=== PATIENT | female | born 1945 | race Caucasian/White ===

== ENCOUNTER 2017-03-13 10:39 | Observation (INO) | payer BC ==
[~2017-03-13] VITALS: Ht 170.2 cm; Wt 105.0 kg
--- OUTSIDE RECORDS SUMMARY | ~2017-03-13 | XMS | Clinical Summary ---
Demographics + + + | Address | [address] | | | [place] [address] | + + + | Home Phone | | + + + | Preferred Language | Unknown | + + + | Marital Status | | + + + | Presybeterian Affiliation | Unknown | + + + | Race | White | + + + | Ethnic Group | Not or | + + + Author + + + | Author | [facility] | + + + | Organization | [facility] | + + + | Address | Unknown | + + + | Phone | Unavailable | + + + Support +------+ +---------+ + | Name | Relationship | Address | Phone | +------+ +---------+ + ECON | Unknown | | +------+ +---------+ + Care Team Providers + +------+ + | Care Product Demonstrator Name | Role | Phone | + +------+ + | Myah Anguiano | PP | | + +------+ + Source Comments [facility] is fully live on both [facility] and [facility] Allergies + + + + + + | Active Allergy | Reactions | Severity | Noted | Comments | | | | | Date | | + + + + + + | Metronidazole | Unknown | | 05/06/19 | Pt reports getting | | Benzoate | | | 15 | a nose bleed after | | | | | | taking | + + + + + + Current Medications + + +-------+---------+------+------+-------+ | Prescription | Sig. | Disp. | Refills | Star | End | Statu | | | | | | t | Date | s | | | | | | Date | | | + + +-------+---------+------+------+-------+ | torsemide 10 mg | Take by mouth. | | | | | Activ | | oral tablet | | | | | | e | + + +-------+---------+------+------+-------+ | atenolol 50 mg | Take by mouth. | | | | | Activ | | oral tablet | | | | | | e | + + +-------+---------+------+------+-------+ | FLUoxetine 40 mg | Take by mouth. | | | | | Activ | | oral capsule | | | | | | e | + + +-------+---------+------+------+-------+ | | Take by mouth. | | | | | Activ | | hydrochlorothiazide | | | | | | e | | 12.5 mg oral tablet | | | | | | | + + +-------+---------+------+------+-------+ | levothyroxine 75 | Take by mouth. | | | | | Activ | | mcg oral tablet | | | | | | e | + + +-------+---------+------+------+-------+ | simvastatin 40 mg | Take by mouth. | | | | | Activ | | oral tablet | | | | | | e | + + +-------+---------+------+------+-------+ | allopurinol 300 mg | Take 150 mg by mouth | | | | | Activ | | oral tablet | once daily. | | | | | e | + + +-------+---------+------+------+-------+ | | Take 2 tablets by | | | | | Activ | | diphenhydrAMINE-acet | mouth once daily at | | | | | e | | aminophen (TYLENOL | bedtime. | | | | | | | PM EXTRA STRENGTH) | | | | | | | | 25-500 mg oral | | | | | | | | tablet | | | | | | | + + +-------+---------+------+------+-------+ | docusate sodium | Take 100 mg by mouth | | | | | Activ | | 100 mg oral capsule | two times daily. | | | | | e | + + +-------+---------+------+------+-------+ | cyclobenzaprine 10 | Take 10 mg by mouth | | | | | Activ | | mg oral tablet | three times daily as | | | | | e | | | needed. Do not use | | | | | | | | longer than 2-3 | | | | | | | | weeks. | | | | | | + + +-------+---------+------+------+-------+ | cholecalciferol, | Take 5,000 Units by | | | | | Activ | | Vitamin D3, 1,000 | mouth once daily. | | | | | e | | unit oral tablet | | | | | | | + + +-------+---------+------+------+-------+ Active Problems Not on file Social History + +-------+ +--------+------+ | Tobacco Use | Types | Packs/Day | Years | Date | | | | | Used | | + +-------+ +--------+------+ | Former Smoker | | | | | + +-------+ +--------+------+ + +---+---+---+ | Smokeless Tobacco: | | | | | Never Used | | | | + +---+---+---+ + + + | Sex Assigned at | Date Recorded | | | | + + + | Not on file | | + + + Last Filed Vital Signs + + + + | Vital Sign | Reading | Time Taken | + + + + | Blood Pressure | 129/87 | 05/05/2014 10:42 AM PDT | + + + + | Pulse | 72 | 05/05/2014 10:42 AM PDT | + + + + | Temperature | - | - | + + + + | Respiratory Rate | 14 | 05/05/2014 10:42 AM PDT | + + + + | Oxygen Saturation | - | - | + + + + | Inhaled Oxygen | - | - | | Concentration | | | + + + + | Weight | 132.1 kg (291 lb 3.6 | 05/05/2014 10:42 AM PDT | | | oz) | | + + + + | Height | 167.5 cm (5' 5.95") | 05/05/2014 10:42 AM PDT | + + + + | Body Mass Index | 47.08 | 05/05/2014 10:42 AM PDT | + + + + Plan of Treatment + + + + + | Health Maintenance | Due Date | Last Done | Comments | + + + + + | INFLUENZA VACCINE | | | | | (FLU SHOT) | 7 | | | + + + + + Results Not on filefrom Last 3 Months
[~2017-03-13 10:39] MED LIST: ALLOPURINOL300 MG PO; ATENOLOL50 MG PO; CIPRO500 MG PO; CYCLOBENZAPRINE10 MG PO; FLAGYL500 MG PO; FLUOXETINE HCL40 MG PO; LEVOTHYROXINE75 MCG PO; MICROZIDE12.5 MG PO; NORCO 5-325 TA1 EACH PO; OXYCODONE-ACET1 EAC1 PO; PERCOCET 5-3251 EACH PO; PROMETHAZINE HC25 M1 PO; SIMVASTATIN40 MG PO; STOOL SOFTENER1 EAC1 PO; STOOL SOFTENER1 EAC2 PO; TORSEMIDE10 MG PO; TYLENOL PM EX-1 EACH PO; VITAMIN D10000 UNIT PO; ZOFRAN4 MG PO
--- NOTE | 2017-03-13 11:30 | NUR ---
pt arrived via wheelchair with spouse. pt alert and oriented. pt able to stand and pivot to bed with one person assist.
[2017-03-13] MEDS ORDERED: TYLENOL325 MG PO (12:00)
[2017-03-13] MEDS ORDERED: PERCOCET 5-3251 EACH PO (12:01)
[2017-03-13] MEDS ORDERED: LEVOTHYROXINE100 MCG PO (12:43)
--- NOTE | 2017-03-13 12:45 | NUR ---
MED REC COMPLETE WITH SAFEWAY REFILL HISTORY.
--- NOTE | 2017-03-13 16:30 | NUR ---
PT UP TO BEDSIDE COMMODE, ONE PERSON ASSIST PIVOT TRANSFER WITH FWW, NON WT BEARING ON RIGHT FOOT. SHE REPORTS PAIN IS 6/10 BUT HAS IMPROVED. WILL ADMINISTER OXYCODONE AT 1700 WHEN AVAILABLE AGAIN. PT SITTING AT BEDSIDE TO EAT DINNER.
--- NOTE | 2017-03-13 16:52 | NUR ---
THIS RN TO ROOM FOR EVENING MEDICATIONS. GIVEN ORDERED (SEE MAR). PT SITTING ON EDGE OF BED EATING DINNER. PT STATES "MY FOOT JUST SEEMS TO BE HURTING WORSE TODAY." PT ADVISED TO KEEP LEG ELEVATED AND KEEP ICE ON ANKLE. PT REFUSES AT THIS TIME BUT STATES SHE WILL "LIFT IT UP AND PUT THE ICE BACK ON AFTER DINNER." CALL LIGHT WITHIN REACH. NO ADDITIONAL REQUESTS OR COMPLAINS AT THIS TIME.
--- NOTE | 2017-03-13 16:59 | NUR ---
PT AGREES AT THIS TIME TO ELEVATE LEGS AND REPLACE ICE. PT ASSISTED INTO A COMFORTABLE POSITION. LEGS ELEVATED. ICE IN PLACE PT FINSHING DINNER. NO FUTHER REQUESTS OR COMPLAINTS AT THIS TIME.
--- NOTE | 2017-03-13 17:39 | NUR ---
PT ADMITED TODAY FOR DARSHAN AND RIGHT ANKLE FX. SURGERY PLANNED FOR 03/14 BUT DELAYED UNTIL DARSHAN IS RESOLVED. BASELINE BUN 1.4-1.5, NOW 2.0. PT TOLERATING PO CARIDAC DIET WITH GOOD INTAKE. PT PAINFUL TODAY, PAIN MEDICAITON GIVEN (LAST AT 1654). LEG ELVATED, ICE IN PLACE. PT ON ONE PERSON ASSIST FOR MOVING. WEAR BOOT WHEN OUT OF BED. PT MAY PIVOT AND USE WALKER FOR TRANSFERS. PT VOIDING WELL, URINE QUANTITY SUFFICIENT. PT ALERT AND ORIENTED, CALLS APPROPRIATLY, AND IS COOPERATIVE WITH CARE PLAN.
--- NOTE | 2017-03-13 18:17 | NUR ---
PAIN REASSESSED, NOW 04/14. PT STATES "IT IS MUCH, MUCH BETTER." PT RESTING IN BED. LEGS REMAIN ELEVATED, ICE IN PLACE. PT WATCHING TV. NO REQUESTS OR COMPLAINTS AT THIS TIME. BED RAILS UP. CALL LIGHT WITHIN REACH.
--- NOTE | 2017-03-13 19:23 | NUR ---
RECEIVED REPORT FROM SIMEON FREEMAN AND JAS. PATIENT IS RESTING COMFORTABLY IN BED, BREATHING IS EVEN AND UNLABORED. REPORTS 3/10 PAIN IN RIGHT ANKLE AND STATES "I AM COMFORTABLE RIGHT NOW." DENIES NEEDS. FEET ARE ELEVATED, ICE APPLIED TO AFFECTED EXTREMITY. CALL LIGHT WITHIN REACH.
--- NOTE | 2017-03-13 19:49 | NUR ---
PATIENT RESTING COMFORTABLY IN BED, BREATHING IS EVEN AND UNLABORED. O2 SATURATION IS 95% ON ROOM AIR. DENIES PAIN AT THIS TIME. SHE STATES "MY PAIN COMES AND GOES, IT FEELS LIKE A SHARP, SHOOTING SENSATION, BUT IT GOES AWAY." DENIES NEEDS AT THIS TIME. ASSESSMENT DONE, CALL LIGHT WITHIN REACH.
--- NOTE | 2017-03-13 20:44 | NUR ---
WOKE PT FOR VITALS. PULSE OX READIN 95 O2 ON RA. IV CONTINUES PER ORDER.
--- NOTE | 2017-03-13 23:01 | NUR ---
PATIENT ASSISTED TO BEDSIDE COMODE WITH 1PA/PIVOT TRANSFER WITH FWW. TOLERATED WELL. NOW RESTING COMFORTABLY IN BED, BREATHING IS EVEN AND UNLABORED. O2 SATURATION IS 95% ON ROOM AIR. REPORTS 4/10 PAIN IN RIGHT FOOT AND STATES "IT IS NOT BAD, BUT IT IS THERE." PRN OXYCODONE GIVEN PER EMAR. AFFECTED LEG ELEVATED AND NEW ICE PACKS APPLIED. PATIENT DENIES FURTHER NEEDS AT THIS TIME. CALL LIGHT WITHIN REACH.
--- NOTE | 2017-03-14 00:56 | NUR ---
PATIENT RESTING COMFORTABLY IN BED, BREATHING IS EVEN AND UNLABORED. O2 SATURATION IS 93% ON ROOM AIR, PULSE IS 65. RIGHT LEG ELEVATED WITH ICE. FLACC SCORE OF 0. CALL LIGHT WITHIN REACH, IV FLUIDS INFUSING.
--- NOTE | 2017-03-14 02:30 | NUR ---
ASSISTED PATIENT TO BEDSIDE COMODE WITH 1PA/FWW PIVOT. TOLERATED WELL WITHOUT A SIGNIFICANT INCREASE IN PAIN. NOW RESTING COMFORTABLY IN BED, BREATHING IS EVEN AND UNLABORED. O2 SATURATION IS 95% ON ROOM AIR. REPORTS 5/10 PAIN IN RIGHT ANKLE, PRN OXYCODONE GIVEN. DENIES FURTHER NEEDS. ASSESSMENT AND VITALS DONE. CALL LIGHT WITHIN REACH.
--- NOTE | 2017-03-14 04:34 | NUR ---
PATIENT'S NIGHT WAS UNEVENTFUL. SHE HAS BEEN RESTING COMFORTABLY IN BED THROUGHOUT SHIFT. VSS, URINE OUTPUT QS. PAIN WELL CONTROLLED WITH ICE AND PRN OXYCODONE. CMS INTACT TO AFFECTED EXTREMITY, HAS EDEMA IN RIGHT FOOT. PATIENT IS 1PA TO COMODE WITH PIVOT TRANSFER AND FWW. PATIENT IS TO WEAR BOOT WHEN AMBULATING. NO ACUTE CHANGES FROM BEGINNING OF SHIFT.
--- NOTE | 2017-03-14 04:40 | NUR ---
PATIENT RESTING COMFORTABLY IN BED, BREATHING IS EVEN AND UNLABORED. FLACC SCORE OF 0. CALL LIGHT WITHIN REACH.
--- NOTE | 2017-03-14 05:53 | NUR ---
ASSISTED PATIENT TO BEDSIDE COMODE WITH 1PA/FWW PIVOT TRANSFER. TOLERATED WELL. NOW RESTING COMFORTABLY IN BED, BREATHING IS EVEN AND UNLABORED. REPORTS 3/10 PAIN IN BLE, PRN TYLENOL GIVEN PER EMAR. DENIES FURTHER NEEDS. ASSESSMENT AND VITALS DONE. CALL LIGHT WITHIN REACH.
--- NOTE | 2017-03-14 07:00 | NUR ---
BEDSIDE HANDOFF REPORT RECEIVED FROM MILLWRIGHT INSTRUCTOR RN. PT RESTING IN BED, LEGS ELEVATED. PT DENIES NEEDS AT THIS TIME. IV FLUIDS INFUSING AT 150 ML/HR.
--- NOTE | 2017-03-14 08:22 | NUR ---
PT RESTING IN BED. PT RATING PAIN 3/10 TO RIGHT ANKLE, DENIES NEED FOR PAIN MEDICATION AT THIS TIME. PT ON ROOM AIR, LUNG SOUNDS CLEAR. PT ASSISTED TO BEDSIDE COMMODE, VOIDING WITHOUT DIFFICULTY, URINE YELLOW IN COLOR. PT ASSIST X1 STAND PIVOT WITH FWW. IV FLUIDS INFUSING NS AT 150 ML/HR. PT TOLERATING REGULAR DIET, POOR APPETITE THIS MORNING. CMS INTACT, MINIMAL SWELLIGN TO RIGHT LOWER LEG, LEGS ELEVATED ON BED. ICE PACKS TO RIGHT ANKLE. PT DENIES OTHER NEEDS AT THIS TIME.
--- NOTE | 2017-03-14 08:48 | NUR ---
Renal function improved, increased enoxaparin dose from 30mg sub-q daily to 40mg sub-q daily
--- NOTE | 2017-03-14 09:27 | NUR ---
PATIENT HA IN BED WAS GIVEN WASHCLOTH FOR FACE AND HANDS. SET PATIENT UP FOR SHOWER, IS GOING TO REST A BIT BEFORE TAKING SHOWER.
--- NOTE | 2017-03-14 11:36 | NUR ---
NOTIFIED BY NURSE AIDE THAT PT HAS RASH UNDER BREASTS. ASSESSED, REDNESS UNDER BOTH BREASTS, PT STATES RASH [place]. IN ADDITION PT HAS RASH TO PANIS. NYSTATIN POWDER ORDERED. NURSE AIDES ASSISTING PT TO COMPLETE SHOWER.
--- NOTE | 2017-03-14 11:48 | NUR ---
HELPED PATIENT SHOWER AND DRESS. USED FWW AND PIVOT BACK TO BED FOR LUNCH. PLACED PILLOWCASES UNDER BREASTS AND ABOVE PELVIC AREA TO RELIEVE IRRITATION. FRESH WATER GIVEN. GRANDDAUGHTER STOPPED BY TO SAY HELLO BEFORE SHOWER.
== END 2017-03-14 13:42 | disposition home or self-care (01) ==
LOC: MS 10:39
PROVIDERS: ADMIT Internal Medicine
DX: N17.9 Acute kidney failure, unspecified (principal); I12.9 Hypertensive chronic kidney disease with stage 1 through stage 4 chronic kidney disease, or unspecified chronic kidney disease; N18.3 Chronic kidney disease, stage 3 (moderate); E78.5 Hyperlipidemia, unspecified; E03.9 Hypothyroidism, unspecified; D63.1 Anemia in chronic kidney disease; F39 Unspecified mood [affective] disorder; E79.0 Hyperuricemia without signs of inflammatory arthritis and tophaceous disease; S82.891A Other fracture of right lower leg, initial encounter for closed fracture; W19.XXXA Unspecified fall, initial encounter; Z79.899 Other long term (current) drug therapy; Z88.1 Allergy status to other antibiotic agents; Z79.891 Long term (current) use of opiate analgesic; Z23 Encounter for immunization
CPT/HCPCS: 36415; 80069; 82570; 84300; 84540; 90662; 96360; 96361; 96372; G0008; G0378; J1650; J7030

== ENCOUNTER 2018-04-17 14:53 | Emergency (ER) | payer BC ==
[~2018-04-17] VITALS: Ht 170.2 cm; Wt 105.0 kg
--- OUTSIDE RECORDS SUMMARY | ~2018-04-17 | XMS | Encounter Summary ---
Demographics + + + | Address | [address] | | | [place] [address] | + + + | Home Phone | | + + + | Preferred Language | Unknown | + + + | Marital Status | | + + + | Presybeterian Affiliation | Unknown | + + + | Race | Unknown | + + + | Ethnic Group | Unknown | + + + Author + + + | Author | [facility] | + + + | Organization | [facility] | + + + | Address | Unknown | + + + | Phone | Unavailable | + + + Support + + + + + | Name | Relationship | Address | Phone | + + + + + | Harsh Ruiz | ECON | [address] | | | | | [place] | | | | | [address] | | + + + + + Care Team Providers + +------+ + | Care Photographer Still Name | Role | Phone | + +------+ + | Melissa Shayan | PCP | | + +------+ + Encounter Details +--------+ + + + + | Date | Type | Department | Care Team | Description | +--------+ + + + + | 02/04/ | Telephone | [facility] | [place], | | | 2017 | | [place] [address] | [address] | | | | | [address] | | | | | | [place] [address] | | | | | | [phone] | | | +--------+ + + + [...] [place] | | | | | | [address] | | | | | | | | +--------+---------+ + + + as of this encounter Visit Diagnoses Not on filein this encounter"
--- OUTSIDE RECORDS SUMMARY | ~2018-04-17 | XMS | Encounter Summary ---
Demographics + + + | Address | [address] | | | [place] [address] | + + + | Home Phone | | + + + | Preferred Language | Unknown | + + + | Marital Status | | + + + | Yarsanism Affiliation | Unknown | + + + | Race | Unknown | + + + | Ethnic Group | Unknown | + + + Author + + + | Author | [facility] | + + + | Organization | [facility] | + + + | Address | Unknown | + + + | Phone | Unavailable | + + + Support + + + + + | Name | Relationship | Address | Phone | + + + + + | Harsh Ruiz | ECON | [address] | | | | | [place] | | | | | [address] | | + + + + + Care Team Providers + +------+ + | Care Attending Ambulatory Care Name | Role | Phone | + [...] | | [address] | [address] [place], [place] | (Primary Dx); CKD | | | | [place] [address] | [address] | (chronic kidney | | | | [phone] | | disease) stage 4, | | [...] uric acid, intact PTH, rU/A, Urine total thuaafs-hk-plgjdbnnjd r atio done before she comes back [...] kidney disease) stage 4, GFR 15-29 ml/min ([facility]) Class 2 obesity due to excess calories [...] She'd visited with the Urology team in [place] & was advised a bladder suspension surgery. [...] 100 mg by mouth daily. ergocalciferol (DRISDOL) 46974 UNITS capsule Take 1 capsule by mouth [...] LABIRON 48.5 12/17/2017 LABPROT 1,431.5 (A) 10/30/2017 [id number] 46 07/05/2017 OLD LABORATORY DATA: Laboratory tests [...] chart her blood pressure in the appropriate [facility] er at home. She is to call [...] uric acid, intact PTH, rU/A, Urine total ilvldcd-iw-lddczuxpky r atio done before she comes back [...] | | | | | | [address] [place], [place] | | | | | | [address] | | | | | | | | +--------+---------+ + + + as of this encounter Visit Diagnoses + + | Diagnosis | + + | Essential hypertension, benign - Primary | + + | CKD (chronic kidney disease) stage 4, GFR 15-29 ml/min ([facility]) | + + | Chronic kidney disease, Stage IV (severe) | + + | Stress incontinence of urine | + + | Persistent proteinuria | + + | Proteinuria | + + | Vitamin D deficiency | + + | Unspecified vitamin D deficiency | + +
--- OUTSIDE RECORDS SUMMARY | ~2018-04-17 | XMS | Clinical Summary ---
Demographics + + + | Address | [address] | | | [place] [address] | + + + | Home Phone | | + + + | Preferred Language | Unknown | + + + | Marital Status | | + + + | Buddhism Affiliation | Unknown | + + + | Race | Unknown | + + + | Ethnic Group | Unknown | + + + Author + + + | Author | [facility] | | | and [place] | + + + | Organization | [facility] | | | and [...] [place] | | | | | [address] | | + + + + + | Harsh Kimball | ECON | [address] | | | | | [place], [place] | | | | | [address] | | + + + + + Care Team Providers + +------+ + | Care Manager Spanish Name | Role | Phone | + [...] + | Facet arthritis of lumbar region (HCC) | 07/01/2013 | + + + | [...] Height | 172.7 cm (5' 8") | 03/12/20144 PST | + + + + | [...] +-------+--------+ +------+-------+---------+ | BCBS | BCBS | [id number] | PPO | | | | | [...] | Self | [birth year] | Home: | [address] | | | al/Fam | | 1946 | [phone] [place] | | | [place] | | | [phone] | [address] | + +--------+ +--------+ + +
--- OUTSIDE RECORDS SUMMARY | ~2018-04-17 | XMS | Encounter Summary ---
Demographics + + + | Address | [address] | | | [place] [address] | + + + | Home Phone | | + + + | Preferred Language | Unknown | + + + | Marital Status | | + + + | Lutheran Affiliation | Unknown | + + + | Race | Unknown | + + + | Ethnic Group | Unknown | + + + Author + + + | Author | [facility] | + + + | Organization | [facility] | + + + | Address | Unknown | + + + | Phone | Unavailable | + + + Support + + + + + | Name | Relationship | Address | Phone | + + + + + | Harsh Ruiz | ECON | [address] | | | | | [place] | | | | | [address] | | + + + + + Care Team Providers + +------+ + | Care Brothel Keeper Name | Role | Phone | + [...] | | | | | [place], [place] [address] | | | | | | [phone] | | | +--------+ + + + [...] [place] | | | | | | [address] | | | | | | | | +--------+---------+ + + + as of this encounter Visit Diagnoses Not on filein this encounter"
--- OUTSIDE RECORDS SUMMARY | ~2018-04-17 | XMS | Encounter Summary ---
Demographics + + + | Address | [address] | | | [place] [address] | + + + | Home Phone | | + + + | Preferred Language | Unknown | + + + | Marital Status | | + + + | Zoroastrian Affiliation | Unknown | + + + | Race | Unknown | + + + | Ethnic Group | Unknown | + + + Author + + + | Author | [facility] | + + + | Organization | [facility] | + + + | Address | Unknown | + + + | Phone | Unavailable | + + + Support + + + + + | Name | Relationship | Address | Phone | + + + + + | Harsh Ruiz | ECON | [address] | | | | | [place] | | | | | [address] | | + + + + + Care Team Providers + +------+ + | Care Customer Data Technician Name | Role | Phone | + +------+ + | Shayan Torres DO | PCP | | + +------+ + Encounter Details +--------+ + + + + | Date | Type | Department | Care Team | Description | +--------+ + + + + | 02/06/ | Orders Only | [facility] | Hussain, | Vitamin D | | 2018 | | [place] [address] | [place] | deficiency; | | | | [address] | | Hyperuricemia; | | | | [place], [place] [address] | | Hematuria, | | | | [phone] | | microscopic; | | | | [...] | | | | | | ml/min ([facility]); | | | | | | Nephrolithiasis | +--------+ + + + + Social [...] | 05/13/ | Office | Nephrology | Neli Frye MD | | | 2019 | Visit | | [address] | | | | | | [address] [place] | | | | | | [address] | | | | | | | | +--------+---------+ + + + as of this encounter Procedures + +--------+ + + + | Procedure Name | Priori | Date/Time | Associated Diagnosis | Comments | | | ty | | | | + +--------+ + + + | PROTEIN / CREATININE | Routin | 02/06/2017 | Vitamin D | Results for this | | RATIO, URINE | e | 8:40 AM | deficiency | procedure are in the | | | | PST | Hyperuricemia | results section. | | | | | Hematuria, | | | | | | microscopic | | | | | | Persistent | | | | | | proteinuria | | | | | | Essential | | | | | | hypertension, benign | | | | | | CKD (chronic | | | | | | kidney disease) | | | | | | stage 4, GFR 15-29 | | | | | | ml/min ([facility]) | | | | | | Nephrolithiasis | | + +--------+ + + + | VITAMIN D 25 HYDROXY | Routin | 02/06/2017 | Vitamin D | Results for this | | | e | 8:40 AM | deficiency | procedure are in the | | | | PST | Hyperuricemia | results section. | | | | | Hematuria, | | | | | | microscopic | | | | | | Persistent | | | | | | proteinuria | | | | | | Essential | | | | | | hypertension, benign | | | | | | CKD (chronic | | | | | | kidney disease) | | | | | | stage 4, GFR 15-29 | | | | | | ml/min (HCC) | | | | | | Nephrolithiasis | | + +--------+ + + + | URINALYSIS (REFLEX | Routin | 02/06/2017 | Vitamin D | Results for this | | TO MICRO) | e | 8:40 AM | deficiency | procedure are in the | | | | PST | Hyperuricemia | results section. | | | | | Hematuria, | | | | | | microscopic | | | | | | Persistent | | | | | | proteinuria | | | | | | Essential | | | | | | hypertension, benign | | | | | | CKD (chronic | | | | | | kidney disease) | | | | | | stage 4, GFR 15-29 | | | | | | ml/min (HCC) | | | | | | Nephrolithiasis | | + +--------+ + + + | CBC W/AUTO DIFF | Routin | 02/06/2017 | Vitamin D | Results for this | | (REFLEX TO MANUAL) | e | 8:40 AM | deficiency | procedure are in the | | | | PST | Hyperuricemia | results section. | | | | | Hematuria, | | | | | | microscopic | | | | | | Persistent | | | | | | proteinuria | | | | | | Essential | | | | | | hypertension, benign | | | | | | CKD (chronic | | | | | | kidney disease) | | | | | | stage 4, GFR 15-29 | | | | | | ml/min (HCC) | | | | | | Nephrolithiasis | | + +--------+ + + + | PTH INTACT NO | Routin | 02/06/2017 | Vitamin D | Results for this | | CALCIUM | e | 8:40 AM | deficiency | procedure are in the | | | | PST | Hyperuricemia | results section. | | | | | Hematuria, | | | | | | microscopic | | | | | | Persistent | | | | | | proteinuria | | | | | | Essential | | | | | | hypertension, benign | | | | | | CKD (chronic | | | | | | kidney disease) | | | | | | stage 4, GFR 15-29 | | | | | | ml/min (HCC) | | | | | | Nephrolithiasis | | + +--------+ + + + | RENAL FUNCTION PANEL | Routin | 02/06/2017 | Vitamin D | Results for this | | | e | 8:40 AM | deficiency | procedure are in the | | | | PST | Hyperuricemia | results section. | | | | | Hematuria, | | | | | | microscopic | | | | | | Persistent | | | | | | proteinuria | | | | | | Essential | | | | | | hypertension, benign | | | | | | CKD (chronic | | | | | | kidney disease) | | | | | | stage 4, GFR 15-29 | | | | | | ml/min ([facility]) | | | | | | Nephrolithiasis | | + +--------+ + + + in this encounter Results Protein / creatinine ratio, urine (02/06/2017 8:40 AM) + + + + + | Component | Value | Ref Range | Performed At | + + + + + | UR | 2,385.7 (A) | 0.0 - 50.0 | [facility] | | PROTEIN/CREATININE | | | LABORATORY | + + + + + + + | Specimen | + + | Urine | + + + + + + + | Performing | Address | City/State/Zipcode | Phone Number | | Organization | | | | + + + + + | [facility] | [address] | [place] [address] | [phone] | | LABORATORY | Blvd. | | | + + + + + Renal function panel (02/06/2017 8:40 AM) + + + + + | Component | Value | Ref Range | Performed At | + + + + + | GLUCOSE | 90 | 70 - 100 mg/dL | [facility] | | | | | LABORATORY | + + + + + | BUN | 51 (A) | 6 - 23 mg/dL | [facility] | | | | | LABORATORY | + + + + + | CREATININE | 2.38 (A) | 0.70 - 1.18 mg/dL | [facility] | | | | | LABORATORY | + + + + + | PHOSPHORUS | 4.4 | 2.5 - 5.0 mg/dL | [facility] | | | | | LABORATORY | + + + + + | Albumin | 3.6 | 3.5 - 5.0 | [facility] | | | | | LABORATORY | + + + + + | SODIUM | 142 | 132 - 143 mmol/L | [facility] | | | | | LABORATORY | + + + + + | POTASSIUM | 4.4 | 3.6 - 5.1 mmol/L | [facility] | | | | | LABORATORY | + + + + + | CHLORIDE | 105 | 95 - 112 mmol/L | [facility] | | | | | LABORATORY | + + + + + | CO2 | 26 | 19 - 31 mmol/L | [facility] | | | | | LABORATORY | + + + + + | ANION GAP AGAP | 15.4 | 7 - 21 mmol/L | [facility] | | | | | LABORATORY | + + + + + | GFR MDRD Non Af Amer | | | [facility] | | | | | LABORATORY | + + + + + | Phosphorus,Inorganic | 4.4 | 2.5 - 5.0 | [facility] | | | | | LABORATORY | + + + + + | BUN/CREAT | 21.4 | 6.0 - 28.6 | [facility] | | | | | LABORATORY | + + + + + | CALCIUM | 9.1 | 8.5 - 10.3 mg/dL | [facility] | | | | | LABORATORY | + + + + + | EGFR | 20 (A) | 60 - 140 mg/dL | [facility] | | | | | LABORATORY | + + + + + + + | Specimen | + + | Blood | + + + + + + + | Performing | Address | City/State/Zipcode | Phone Number | | Organization | | | | + + + + + | [facility] | [address] | [place] [address] | [phone] | | LABORATORY | Blvd[address] | | | + + + + + Vitamin D,25 hydroxy (02/06/2017 8:40 AM) + +-------+ + + | Component | Value | Ref Range | Performed At | + +-------+ + + | VITAMIN D,25 HYDROXY | 47 | 30 - 100 | [facility] | | | | | LABORATORY | + +-------+ + + + + | Specimen | + + | Blood | + + + + + + + | Performing | Address | City/State/Zipcode | Phone Number | | Organization | | | | + + + + + | [facility] | [address] | [place] [address] | [phone] | | LABORATORY | Blvd[address] | | | + + + + + CBC W/Auto Diff (Reflex to Manual) (02/06/2017 8:40 AM) + + + + + | Component | Value | Ref Range | Performed At | + + + + + | WBC | 6.2 | 4.5 - 11.0 10^3/mL | [facility] | | | | | LABORATORY | + + + + + | RBC | 3.00 (A) | 3.8 - 5.1 10^6/ L | [facility] | | | | | LABORATORY | + + + + + | HGB | 10.4 (A) | 12.0 - 16.0 g/dL | [facility] | | | | | LABORATORY | + + + + + | HCT | 31.0 (A) | 35 - 45 % | [facility] | | | | | LABORATORY | + + + + + | MCV | 103.3 (A) | 81 - 99 fL | [facility] | | | | | LABORATORY | + + + + + | MCH | 35 (A) | 27 - 33 pg | [facility] | | | | | LABORATORY | + + + + + | MCHC | 34 | 30 - 36 g/dL | [facility] | | | | | LABORATORY | + + + + + | PLT | 185 | 140 - 440 K/ L | [facility] | | | | | LABORATORY | + + + + + | RDW SD | | % | [facility] | | | | | LABORATORY | + + + + + | MPV | | fL | [facility] | | | | | LABORATORY | + + + + + | DIFF TYPE | | | [facility] | | | | | LABORATORY | + + + + + | NEUTROPHILS | | % | [facility] | | | | | LABORATORY | + + + + + | LYMPHOCYTES | | % | [facility] | | | | | LABORATORY | + + + + + | MONOCYTES | | % | [facility] | | | | | LABORATORY | + + + + + | EOSINOPHILS | | % | [facility] | | | | | LABORATORY | + + + + + | BASOPHILS | | % | [facility] | | | | | LABORATORY | + + + + + | NEUTROPHILS ABS | | / L | [facility] | | | | | LABORATORY | + + + + + | LYMPHOCYTES ABS | | / L | [facility] | | | | | LABORATORY | + + + + + | MONOCYTES ABS | | / L | [facility] | | | | | LABORATORY | + + + + + | EOSINOPHILS ABS | | / L | [facility] | | | | | LABORATORY | + + + + + | BASOPHILS ABS | | / L | [facility] | | | | | LABORATORY | + + + + + + + | Specimen | + + | Blood | + + + + + + + | Performing | Address | City/State/Zipcode | Phone Number | | Organization | | | | + + + + + | [facility] | [address] | [place] [address] | [phone] | | LABORATORY | Blvd[address] | | | + + + + + Urinalysis (reflex to micro) (02/06/2017 8:40 AM) + + + + + | Component | Value | Ref Range | Performed At | + + + + + | COLOR UA | Yellow | | [facility] | | | | | LABORATORY | + + + + + | CLARITY | Clear | | [facility] | | | | | LABORATORY | + + + + + | SPECIFIC | 1.010 | 1.005 - 1.030 | [facility] | | GRAVITY,URINE | | | LABORATORY | + + + + + | LEUKOCYTE ESTERASE | Trace | | [facility] | | | | | LABORATORY | + + + + + | NITRITE | Negative | | [facility] | | | | | LABORATORY | + + + + + | UROBILINOGEN | Normal | | [facility] | | | | | LABORATORY | + + + + + | PROTEIN | 100 | | [facility] | | | | | LABORATORY | + + + + + | PH,URINE | 5 | 5 - 9 | [facility] | | | | | LABORATORY | + + + + + | BLOOD | PositiveComment: small | | [facility] | | | | | LABORATORY | + + + + + | KETONES | Negative | | [facility] | | | | | LABORATORY | + + + + + | BILIRUBIN | Negative | | [facility] | | | | | LABORATORY | + + + + + | GLUCOSE | Negative | | [facility] | | | | | LABORATORY | + + + + + + + | Specimen | + + | Urine | + + + + + + + | Performing | Address | City/State/Zipcode | Phone Number | | Organization | | | | + + + + + | [facility] | [address] | [place] [address] | [phone] | | LABORATORY | Blvd[address] | | | + + + + + PTH intact no calcium (02/06/2017 8:40 AM) + + + + + | Component | Value | Ref Range | Performed At | + + + + + | PTH INTACT NO | 118.2 (A) | 15 - 65 pg/mL | [facility] | | CALCIUM | | | LABORATORY | + + + + + + + | Specimen | + + | Blood | + + + + + + + | Performing | Address | City/State/Zipcode | Phone Number | | Organization | | | | + + + + + | [facility] | [address] | [place] [address] | [phone] | | LABORATORY | Blvd. | | | + + + + + in this encounter Visit Diagnoses + + | Diagnosis | + + | Vitamin D deficiency | + + | Unspecified vitamin D deficiency | + + | Hyperuricemia | + + | Other abnormal blood chemistry | + + | Hematuria, microscopic | + + | Microscopic hematuria | + + | Persistent proteinuria | + + | Proteinuria | + + | Essential hypertension, benign | + + | CKD (chronic kidney disease) stage 4, GFR 15-29 ml/min ([facility]) | + + | Chronic kidney disease, Stage IV (severe) | + + | Nephrolithiasis | + + | Calculus of kidney | + +"
--- OUTSIDE RECORDS SUMMARY | ~2018-04-17 | XMS | Encounter Summary ---
Demographics + + + | Address | [address] | | | [place] [address] | + + + | Home Phone | | + + + | Preferred Language | Unknown | + + + | Marital Status | | + + + | Yarsani Affiliation | Unknown | + + + | Race | Unknown | + + + | Ethnic Group | Unknown | + + + Author + + + | Author | [facility] | + + + | Organization | [facility] | + + + | Address | Unknown | + + + | Phone | Unavailable | + + + Support + + + + + | Name | Relationship | Address | Phone | + + + + + | Harsh Ruiz | ECON | [address] | | | | | [place] | | | | | [address] | | + + + + + Care Team Providers + +------+ + | Care Navy Fighter Pilot Name | Role | Phone | + [...] | | [address] | [address] [place], [place] | (Primary Dx); CKD | | | | [place] [address] | [address] | (chronic kidney | | | | [phone] | | disease) stage 4, | | [...] uric acid, intact PTH, rU/A, Urine total odgdbeq-fj-fgvslkpdgs r atio done before she comes back [...] kidney disease) stage 4, GFR 15-29 ml/min ([facility]) Class 2 obesity due to [...] She'd visited with the Urology team in [place] & was advised a bladder suspension surgery. [...] 100 mg by mouth daily. ergocalciferol (DRISDOL) 87075 UNITS capsule Take 1 capsule by mouth [...] LABIRON 48.5 12/17/2017 LABPROT 1,431.5 (A) 10/30/2017 [id number] 46 07/05/2017 OLD LABORATORY DATA: Laboratory tests [...] chart her blood pressure in the appropriate [facility] er at home. She is to [...] uric acid, intact PTH, rU/A, Urine total yddzcsc-tn-yttwflbxbc r atio done before she comes back [...] | | | | | | [address] [place], [place] | | | | | | [address] | | | | | | | | +--------+---------+ + + + as of this encounter Visit Diagnoses + + | Diagnosis | + + | Essential hypertension, benign - Primary | + + | CKD (chronic kidney disease) stage 4, GFR 15-29 ml/min ([facility]) | + + | Chronic kidney disease, Stage IV (severe) | + + | Stress incontinence of urine | + + | Persistent proteinuria | + + | Proteinuria | + + | Vitamin D deficiency | + + | Unspecified vitamin D deficiency | + +
--- OUTSIDE RECORDS SUMMARY | ~2018-04-17 | XMS | Encounter Summary ---
Demographics + + + | Address | [address] | | | [place] [address] | + + + | Home Phone | | + + + | Preferred Language | Unknown | + + + | Marital Status | | + + + | Mosque Affiliation | Unknown | + + + | Race | Unknown | + + + | Ethnic Group | Unknown | + + + Author + + + | Author | [facility] | + + + | Organization | [facility] | + + + | Address | Unknown | + + + | Phone | Unavailable | + + + Support + + + + + | Name | Relationship | Address | Phone | + + + + + | Harsh Ruiz | ECON | [address] | | | | | [place] | | | | | [address] | | + + + + + Care Team Providers + +------+ + | Care Client Service Consultant Name | Role | Phone | + [...] Hyperuricemia; | | | | [place], [place] [address] | | Hematuria, | | | | [phone] | | microscopic; | | | | [...] | | | | | | ml/min ([facility]); | | | | | | Nephrolithiasis [...] | | | | | | [address] [place] | | | | | | [address] | | | | | | | [...] | | | | | | ml/min ([facility]) | | | | | | Nephrolithiasis [...] | | | | | | ml/min ([facility]) | | | | | | Nephrolithiasis [...] | + + + + + | [facility] | [address] | [place] [address] | [phone] | | LABORATORY | Blvd[address] | | [...] + + + | [facility] | [address] | [place] [address] | [phone] | | LABORATORY | Blvd[address] | | [...] + + + | [facility] | [address] | [place] [address] | [phone] | | LABORATORY | Blvd[address] | | [...] + + + | [facility] | [address] | [place] [address] | [phone] | | LABORATORY | [address]vd[address] | | [...] + + + | [facility] | [address] | [place] [address] | [phone] | | LABORATORY | [address]vd[address] | | [...] + + + | [facility] | [address] | [place] [address] | [phone] | | LABORATORY | [address]vd[address] | | [...] kidney disease) stage 4, GFR 15-29 ml/min ([facility]) | + + | Chronic kidney disease, Stage IV (severe) | + + | Nephrolithiasis | + + | Calculus of kidney | + +"
--- OUTSIDE RECORDS SUMMARY | ~2018-04-17 | XMS | Clinical Summary ---
Demographics + + + | Address | [address] | | | [place] [address] | + + + | Home Phone | | + + + | Preferred Language | Unknown | + + + | Marital Status | | + + + | Nondenominational Affiliation | Unknown | + + + | Race | Unknown | + + + | Ethnic Group | Unknown | + + + Author + + + | Author | [facility] [employer] [facility] | + + + | Organization | [facility] [facility] | + + + | Address | Unknown | + + + | Phone | Unavailable | + + + Support + + + + + | Name | Relationship | Address | Phone | + + + + + | Harsh Kimball | ECON | [address] | | | | | [place] | | | | | [address] | | + + + + + Care Team Providers + +------+ + | Care Instructor Traffic Safety Name | Role | Phone | + [...] 06/0 | | Activ | | (DRISDOL) 25989 | mouth 3 (three) | capsule | [...] kidney disease) stage 4, GFR 15-29 ml/min ([facility]) | 11/14/2010 | + + + | [...] ml/min | | | | | | ([facility]); Stress | | | | | | [...] 02/06/ | Documentati | | Hussain, | Margi (Labs) | | 2018 | on Only [...] | | | | | | ml/min ([facility]); | | | | | | Nephrolithiasis | +--------+ + + + + | 02/04/ | Telephone | | Hussain | | | 2017 | | | [place] | | +--------+ + + + + | 01/31/ | Documentati | | Akoum, Neil H, MD | Other (Signed | | 2018 | on Only | | | Physician Order) | +--------+ + + + + from [...] | | | | | | [address] [place], [place] | | | | | | [id number] | | | | | | | [...] +------+-------+ + | PREMERA | PREMER | [id number] | | | [address] [address] | | | A BLUE | | | | [place] | | | [place]OSS | | | | [address] | | | FED | | | | | | | PPO | | | | | +---------+--------+ +------+-------+ + | REGENCE | REGENC | [id number] | | | | | | E-OREG | | | | | | | ON | | | | | +---------+--------+ +------+-------+ [...] | Self | [birth year] | Home: | [address] [place] [address] | | | al/Fam | | 1946 | [phone] | [place] | | | [place] | | | [phone] | [address] | + +--------+ +--------+ + +
--- OUTSIDE RECORDS SUMMARY | ~2018-04-17 | XMS | Clinical Summary ---
Demographics + + + | Address | [address] | | | [place] [address] | + + + | Home Phone | | + + + | Preferred Language | Unknown | + + + | Marital Status | | + + + | Voodoo Affiliation | Unknown | + + + | Race | Unknown | + + + | Ethnic Group | Unknown | + + + Author + + + | Author | [facility] [employer] [facility] | + + + | Organization | [facility] | + + + | Address | Unknown | + + + | Phone | Unavailable | + + + Support + + + + + | Name | Relationship | Address | Phone | + + + + + | Harsh Kimball | ECON | [address] | | | | | [place] | | | | | [address] | | + + + + + Care Team Providers + +------+ + | Care Wind Up Operator Name | Role | Phone | [...] 06/0 | | Activ | | (DRISDOL) 79275 | mouth 3 (three) | capsule | [...] kidney disease) stage 4, GFR 15-29 ml/min ([facility]) | 11/14/2010 | + + + | [...] ml/min | | | | | | ([facility]); Stress | | | | | | [...] | | | | | | ml/min ([facility]); | | | | | | Nephrolithiasis [...] | | | | | | [address] [place], [place] | | | | | | [id number] | | | | | | | [...] +------+-------+ + | PREMERA | PREMER | [id number] | | | [address] [address] | | | A BLUE | | | | [place] | | | [place] | | | | [address] | | | FED | | | | | | | PPO | | | | | +---------+--------+ +------+-------+ + | REGENCE | REGENC | [id number] | | | | | | E-OREG [...] | Self | [birth year] | Home: | [address] [place] [address] | | | al/Fam | | 1946 | [phone] | [place] | | | [place] | | | [phone] | [address] | + +--------+ +--------+ + +
--- OUTSIDE RECORDS SUMMARY | ~2018-04-17 | XMS | Encounter Summary ---
Demographics + + + | Address | [address] | | | [place] [address] | + + + | Home Phone | | + + + | Preferred Language | Unknown | + + + | Marital Status | | + + + | Yazidism Affiliation | Unknown | + + + | Race | Unknown | + + + | Ethnic Group | Unknown | + + + Author + + + | Author | [facility] [employer] [facility] | + + + | Organization | [facility] | + + + | Address | Unknown | + + + | Phone | Unavailable | + + + Support + + + + + | Name | Relationship | Address | Phone | + + + + + | Harsh Ruiz | ECON | [address] | | | | | [place] | | | | | [address] | | + + + + + Care Team Providers + +------+ + | Care Dampener Name | Role | Phone | + [...] | | | | | [place] [address] | | | | | | [phone] | | | +--------+ + + + [...] | | | | | | [address] [place] | | | | | | [address] | | | | | | | [...] kidney disease) stage 4, GFR 15-29 ml/min ([facility]) - Primary | + + | Chronic kidney disease, Stage IV (severe) | + + | Essential hypertension, benign | + + | Persistent proteinuria | + + | Proteinuria | + + | Hematuria, microscopic | + + | Microscopic hematuria | + +"
--- OUTSIDE RECORDS SUMMARY | ~2018-04-17 | XMS | Encounter Summary ---
Demographics + + + | Address | [address] | | | [place] [address] | + + + | Home Phone | | + + + | Preferred Language | Unknown | + + + | Marital Status | | + + + | Taoism Affiliation | Unknown | + + + | Race | Unknown | + + + | Ethnic Group | Unknown | + + + Author + + + | Author | [facility] [employer] [facility] | + + + | Organization | [facility] | + + + | Address | Unknown | + + + | Phone | Unavailable | + + + Support + + + + + | Name | Relationship | Address | Phone | + + + + + | Harsh Ruiz | ECON | [address] | | | | | [place] | | | | | [address] | | + + + + + Care Team Providers + +------+ + | Care Client Delivery Manager Name | Role | Phone | [...] | | | | | [place] [address] | | | | | | [phone] | | | +--------+ + + + [...] | | | | | | [address] [place] | | | | | | [address] | | | | | | | [...] stage 4, GFR 15-29 ml/min ([facility]) - Primary | + + | Chronic kidney disease, Stage IV (severe) | + + | Essential hypertension, benign | + + | Persistent proteinuria | + + | Proteinuria | + + | Hematuria, microscopic | + + | Microscopic hematuria | + +"
--- OUTSIDE RECORDS SUMMARY | ~2018-04-17 | XMS | Clinical Summary ---
Demographics + + + | Address | [address] | | | [place] [address] | + + + | Home Phone | | + + + | Preferred Language | Unknown | + + + | Marital Status | | + + + | Adventist Affiliation | Unknown | + + + [...] Team Providers + +------+ + | Care Certified Appliance Service Technician Name | Role | Phone | + +------+ + | Myah Anguiano | PP | Unavailable | + +------+ + Source Comments [facility] is fully live on both [facility] Ambulatory and [facility] InPatient.[facility] Allergies + + + + + + [...] | PPO | [phone] | [address] [address] [place] | | | CROSS | | | [address] | [place] [address] | | | FEDERA | | | [...] | Self | [birth year] | Home: | [address] [place] [address] ST | | | al/Fam | | 1946 | [phone] | [place] [address] | | | sergio | | | [phone] | | + +--------+ +--------+ + +
--- OUTSIDE RECORDS SUMMARY | ~2018-04-17 | XMS | Clinical Summary ---
Demographics + + + | Address | [address] | | | [place] [address] | + + + | Home Phone [...] Team Providers + +------+ + | Care Stummel Selector Name | Role | Phone | + +------+ + | Myah Anguiano | PP | Unavailable | + +------+ + Source Comments [facility] is fully live on both [facility] and [facility] InPatient.[facility] Allergies + + + + + [...] | PPO | [phone] | [address] [address] [place] | | | CROSS | | | [address] | [place] [address] | | | FEDERA | | | [...] | Self | [birth year] | Home: | [address] [place] [address] ST | | | al/Fam | | 1946 | [phone] | [place] [address] | | | sergio | | | [phone] | | + +--------+ +--------+ + +
--- OUTSIDE RECORDS SUMMARY | ~2018-04-17 | XMS | Clinical Summary ---
Demographics + + + | Address | [address] | | | [place] [address] | + + + | Home Phone | | + + + | Preferred Language | Unknown | + + + | Marital Status | | + + + | Synagogue Affiliation | Unknown | + + + | Race | Unknown | + + + | Ethnic Group | Unknown | + + + Author + + + | Author | [facility] | | | and [place] | + + + | Organization | [facility] | | [...] [place] | | | | | [address] | | + + + + + | Harsh Kimball | ECON | [address] | | | | | [place], [place] | | | | | [address] | | + + + + + Care Team Providers + +------+ + | Care Laundry Housekeeper Name | Role | Phone | + +------+ + | Myah Anguiaon PA-C | PP | | + +------+ [...] +-------+--------+ +------+-------+---------+ | BCBS | BCBS | [id number] | PPO | | | | | [...] | [place] | | | [phone] | [phone] | + +--------+ +--------+ + +
--- OUTSIDE RECORDS SUMMARY | ~2018-04-17 | XMS | Encounter Summary ---
Demographics + + + | Address | [address] | | | [place] [address] | + + + | Home Phone | | + + + | Preferred Language | Unknown | + + + | Marital Status | | + + + | Orthodox Affiliation | Unknown | + + + | Race | Unknown | + + + | Ethnic Group | Unknown | + + + Author + + + | Author | [facility] | + + + | Organization | [facility] | + + + | Address | Unknown | + + + | Phone | Unavailable | + + + Support + + + + + | Name | Relationship | Address | Phone | + + + + + | Harsh Ruiz | ECON | [address] | | | | | [place] | | | | | [address] | | + + + + + Care Team Providers + +------+ + | Care Enrober Tender Name | Role | Phone | [...] | | | | | [place], [place] [address] | | | | | | [phone] | | | +--------+ + + + [...] [place] | | | | | | [address] | | | | | | | | +--------+---------+ + + + as of this encounter Visit Diagnoses Not on filein this encounter"
--- OUTSIDE RECORDS SUMMARY | ~2018-04-17 | XMS | Encounter Summary ---
Demographics + + + | Address | [address] | | | [place] [address] | + + + | Home Phone | | + + + | Preferred Language | Unknown | + + + | Marital Status | | + + + | Gnosticism Affiliation | Unknown | + + + | Race | Unknown | + + + | Ethnic Group | Unknown | + + + Author + + + | Author | [facility] | + + + | Organization | [facility] | + + + | Address | Unknown | + + + | Phone | Unavailable | + + + Support + + + + + | Name | Relationship | Address | Phone | + + + + + | Harsh Ruiz | ECON | [address] | | | | | [place] | | | | | [address] | | + + + + + Care Team Providers + +------+ + | Care Joggle Press Operator Name | Role | Phone | + +------+ + | Shayan Torres | PCP | | + +------+ + Reason for Visit +--------+ + | Reason | Comments | +--------+ + | Other | Signed Physician Order | +--------+ + Encounter Details +--------+ + + + + | Date | Type | Department | Care Team | Description | +--------+ + + + + | 01/31/ | Documentati | [facility] | Neil Frye MD | Other (Signed | | 2018 | on Only | [place] [address] | Physician Order) | | | | [address] | [address] [place], [place] | | | | | [place] [address] | [address] | | | | | [phone] | | | +--------+ + + + [...] + + + as of this encounter Progress Notes Charisse Poole N - 01/31/2018 2:40 PM PSTBP log reviewed from 11/10/2017-12/15/2017 Orders: 1. Stop HCTZ 2. Start indapamide 1.25 mg take half a tablet daily 3. Repeat BMP on 01/14/2018 4. BP log on 01/14/2018in this encounter Plan of Treatment +--------+---------+ + + + | Date | Type | Specialty | Care Team | Description | +--------+---------+ + + + | 05/13/ | Office | Nephrology | Neil Frye MD | | | 2019 | Visit | | [address] | | | | | | [address] [place] | | | | | | [address] | | | | | | | | +--------+---------+ + + + as of this encounter Visit Diagnoses Not on filein this encounter"
--- OUTSIDE RECORDS SUMMARY | ~2018-04-17 | XMS | Encounter Summary ---
Demographics + + + | Address | [address] | | | [place] [address] | + + + | Home Phone | | + + + | Preferred Language | Unknown | + + + | Marital Status | | + + + | Advent Affiliation | Unknown | + + + | Race | Unknown | + + + | Ethnic Group | Unknown | + + + Author + + + | Author | [facility] | + + + | Organization | [facility] | + + + | Address | Unknown | + + + | Phone | Unavailable | + + + Support + + + + + | Name | Relationship | Address | Phone | + + + + + | Harsh Ruiz | ECON | [address] | | | | | [place] | | | | | [address] | | + + + + + Care Team Providers + +------+ + | Care Hospice Executive Director Name | Role | Phone | [...] | | 2018 | on Only | [place] [address] | [address] | Physician Order) | | | | [address] | [address] [place], [place] | | | | | [place] [address] | [address] | | | | | [phone] | | | +--------+ + + + [...] [place] | | | | | | [address] | | | | | | | | +--------+---------+ + + + as of this encounter Visit Diagnoses Not on filein this encounter"
--- OUTSIDE RECORDS SUMMARY | ~2018-04-17 | XMS | Encounter Summary ---
Demographics + + + | Address | [address] | | | [place] [address] | + + + | Home Phone | | + + + | Preferred Language | Unknown | + + + | Marital Status | | + + + | Mu-Ism Affiliation | Unknown | + + + | Race | Unknown | + + + | Ethnic Group | Unknown | + + + Author + + + | Author | [facility] | + + + | Organization | [facility] | + + + | Address | Unknown | + + + | Phone | Unavailable | + + + Support + + + + + | Name | Relationship | Address | Phone | + + + + + | Harsh Ruiz | ECON | [address] | | | | | [place] | | | | | [address] | | + + + + + Care Team Providers + +------+ + | Care Agility Instructor Name | Role | Phone | + [...] | | | | | [place] [address] | | | | | | [phone] | | | +--------+ + + + [...] [place] | | | | | | [address] | | | | | | | | +--------+---------+ + + + as of this encounter Visit Diagnoses Not on filein this encounter"
[~2018-04-17 14:53] MED LIST changes: +LEVOTHYROXINE100 MCG PO; +TYLENOL325 MG PO
[2018-04-17] MEDS ORDERED: LOSARTAN POTASS25 MG PO (15:14)
[2018-04-17] MEDS ORDERED: DULOXETINE HCL60 MG PO (15:15)
[2018-04-17] MEDS ORDERED: INDAPAMIDE1.25 MG PO (15:16)
[2018-04-17] MEDS ORDERED: METOPROLOL SUC100 MG PO (15:16)
[2018-04-17] MEDS ORDERED: VITAMIN D35000 UNI1 PO (15:17)
[2018-04-17] MEDS ORDERED: VITAMIN B122500 MC1 PO (15:17)
--- NOTE | 2018-04-17 19:54 | EKG ---
[facility] [address] [place], [place] [address] Signed Normal sinus rhythm Normal ECG When compared with ECG of 12-MAR-2017 16:57, No significant change was found Confirmed by DEIRDRE LOTT MD ([id number]) on 04/17/2018 7:54:42 PM Electronically Signed By: DEIRDRE LOTT MD 04/17/18 195 PATIENT NAME: SUZANNE KIMBALL Electrocardiogram DATE OF : 49 PHYSICIAN: DEIRDRE LOTT MD REPORT #: [id number] REPORT IS CONFIDENTIAL AND NOT TO BE RELEASED WITHOUT AUTHORIZATION
== END 2018-04-17 17:57 | disposition home or self-care (01) ==
LOC: ED 14:53
DX: I12.9 Hypertensive chronic kidney disease with stage 1 through stage 4 chronic kidney disease, or unspecified chronic kidney disease (principal); N18.3 Chronic kidney disease, stage 3 (moderate); E86.0 Dehydration; R20.8 Other disturbances of skin sensation; E78.00 Pure hypercholesterolemia, unspecified; E03.9 Hypothyroidism, unspecified; Z87.891 Personal history of nicotine dependence; Z79.899 Other long term (current) drug therapy; Z88.8 Allergy status to other drugs, medicaments and biological substances
CPT/HCPCS: 70450; 71046; 80053; 81001; 84484; 85025; 85610; 85730; 93005; 93010; 96360; 99284-25; J7030

== ENCOUNTER 2018-05-03 09:18 | Observation (INO) | payer BC ==
[~2018-05-03] VITALS: Ht 170.2 cm; Wt 101.2 kg
--- OUTSIDE RECORDS SUMMARY | ~2018-05-03 | XMS | Clinical Summary ---
Demographics + + + | Address | [address] | | | [place] [address] | + + + | Home Phone | | + + + | Preferred Language | Unknown | + + + | Marital Status | | + + + | Caodaism Affiliation | Unknown | + + + | Race | Unknown | + + + | Ethnic Group | Unknown | + + + Author + + + | Author | [facility] | | | and [place] | + + + | Organization | [facility] | | | and [place] | + + + | Address | Unknown | + + + | Phone | Unavailable | + + + Support + + + + + | Name | Relationship | Address | Phone | + + + + + | Jose Luis Kimball | ECON | [address] | | | | | [place] | | | | | [address] | | + + + + + | Harsh Kimball | ECON | [address] | | | | | [place], [place] | | | | | [address] | | + + + + + Care Team Providers + +------+ + | Care Shaft Tender Name | Role | Phone | + +------+ + | Myah Anguiano PA-C | PP | | + +------+ + Allergies + + + + + + | Active Allergy | Reactions | Severity | Noted | Comments | | | | | Date | | + + + + + + | Metronidazole | | | 08/24/19 | | | | | | 11 | | + + + + + + Current Medications + + +---------+---------+------+------+-------+ | Prescription | Sig. | Disp. | Refills | Star | End | Statu | | | | | | t | Date | s | | | | | | Date | | | + + +---------+---------+------+------+-------+ | levothyroxine | Take 75 mcg by mouth | | | | | Activ | | (SYNTHROID, | every morning | | | | | e | | LEVOTHROID) 75 MCG | (before breakfast). | | | | | | | tablet | | | | | | | + + +---------+---------+------+------+-------+ | simvastatin | Take 20 mg by mouth | | | | | Activ | | (ZOCOR) 40 mg tablet | nightly. | | | | | e | + + +---------+---------+------+------+-------+ | cyclobenzaprine | Take 10 mg by mouth | | | | | Activ | | (FLEXERIL) 10 mg | 3 times daily as | | | | | e | | tablet | needed. | | | | | | + + +---------+---------+------+------+-------+ | fluoxetine | Take 40 mg by mouth | | | | | Activ | | (PROZAC) 40 MG | Daily. | | | | | e | | capsule | | | | | | | + + +---------+---------+------+------+-------+ | atenolol | Take 50 mg by mouth | | | | | Activ | | (TENORMIN) 50 mg | Daily. | | | | | e | | tablet | | | | | | | + + +---------+---------+------+------+-------+ | | Take 12.5 mg by | | | | | Activ | | hydrochlorothiazide | mouth Daily. | | | | | e | | (HYDRODIURIL) 12.5 | | | | | | | | MG tablet | | | | | | | + + +---------+---------+------+------+-------+ | Cholecalciferol | Take 1 capsule by | | | | | Activ | | (VITAMIN D3) 5000 | mouth Three times a | | | | | e | | UNITS CAPS | week. | | | | | | + + +---------+---------+------+------+-------+ | torsemide | Take 10 mg by mouth | | | | | Activ | | (DEMADEX) 10 mg | Daily. | | | | | e | | tablet | | | | | | | + + +---------+---------+------+------+-------+ | | Take 1 tablet by | | | | | Activ | | Diphenhydramine-APAP | mouth Daily as | | | | | e | | , sleep, (TYLENOL PM | needed. | | | | | | | EXTRA STRENGTH PO) | | | | | | | + + +---------+---------+------+------+-------+ | Docusate Calcium | Take 1 tablet by | | | | | Activ | | (STOOL SOFTENER PO) | mouth as needed. | | | | | e | + + +---------+---------+------+------+-------+ | lidocaine | Place 1 patch onto | | | | | Activ | | (LIDODERM) 5% patch | the skin Daily. | | | | | e | | | Apply for 12 hours, | | | | | | | | then remove for 12 | | | | | | | | hours. | | | | | | + + +---------+---------+------+------+-------+ | traMADol (ULTRAM) | 1-2 tabs PO q 4-6 | 120 | 0 | 02/0 | | Activ | | 50 mg tablet | hours PRN back pain | tablet | | 5/20 | | e | | | | | | 15 | | | + + +---------+---------+------+------+-------+ | gabapentin | 1 tab TID for | 90 | 2 | 02/0 | | Activ | | (NEURONTIN) 300 mg | neuropathic pain | capsule | | 06/24 | | e | | capsule | | | | 15 | | | + + +---------+---------+------+------+-------+ Active Problems + + + | Problem | Noted Date | + + + | Bursitis of right hip | 02/10/2014 | + + + | L4-L5 disc bulge - w/ annular tear, pressing on left L4 nerve | 11/26/2013 | | root | | + + + | Facet arthritis of lumbar region | 07/01/2013 | + + + | PARESTHESIAS - bilateral lower extremities | 09/09/2012 | + + + | SACROILIITIS | | + + + | SPINAL STENOSIS, LUMBAR | | + + + | MORBID OBESITY | | + + + | BACK PAIN, LUMBAR | | + + + | OSTEOARTHRITIS, LUMBOSACRAL SPINE | | + + + Social History + +-------+ +--------+ + | Tobacco Use | Types | Packs/Day | Years | Date | | | | | Used | | + +-------+ +--------+ + | Former Smoker | | | | Quit: 02/05/1981 | + +-------+ +--------+ + + + + | Sex Assigned at | Date Recorded | | | | + + + | Not on file | | + + + Last Filed Vital Signs + + + + | Vital Sign | Reading | Time Taken | + + + + | Blood Pressure | 149/88 | 03/12/2014 1344 PST | + + + + | Pulse | 69 | 03/12/2014 1344 PST | + + + + | Temperature | - | - | + + + + | Respiratory Rate | 17 | 11/26/2013 1050 PDT | + + + + | Oxygen Saturation | - | - | + + + + | Inhaled Oxygen | - | - | | Concentration | | | + + + + | Weight | 129.3 kg (285 lb) | 03/12/20141343 PST | + + + + | Height | 172.7 cm (5' 8") | 03/12/20141343 PST | + + + + | Body Mass Index | 43.33 | 03/12/20144 PST | + + + + Plan of Treatment + + + + + | Health Maintenance | Due Date | Last Done | Comments | + + + + + | Vaccine: | | | | | Dtap/Tdap/Td (1 - | 7 | | | | Tdap) | | | | + + + + + | Vaccine: Zoster (1 | | | | | of 2) | 8 | | | + + + + + | Vaccine: | | | | | Pneumococcal 65+ | 3 | | | | Low/Medium Risk (1 | | | | | of 2 - PCV13) | | | | + + + + + | Vaccine: Influenza | | | | | (#1) | 8 | | | + + + + + Results Not on filefrom Last 3 Months Insurance +-------+--------+ +------+-------+---------+ | Payer | Benefi | Subscriber | Type | Phone | Address | | | t Plan | ID | | | | | | / | | | | | | | Group | | | | | +-------+--------+ +------+-------+---------+ | BCBS | BCBS | [id number] | PPO | | | | | [place] | | | | | | | L FEP | | | | | +-------+--------+ +------+-------+---------+ + +--------+ +--------+ + + | Guarantor Name | Accoun | Relation to | Date | Phone | Billing Address | | | t Type | Patient | of | | | | | | | | | | + +--------+ +--------+ + + | SUZANNE KIMBALL | Person | Self [birth year] | Home: | [address] [place] [address] ST | | | al/Fam | | [phone] | [phone] [place] | | | [place] | | | [phone] | [phone] | + +--------+ +--------+ + +
--- OUTSIDE RECORDS SUMMARY | ~2018-05-03 | XMS | Encounter Summary ---
Demographics + + + | Address | [address] | | | [place] [address] | + + + | Home Phone | | + + + | Preferred Language | Unknown | + + + | Marital Status | | + + + | Jewish Affiliation | Unknown | + + + | Race | Unknown | + + + | Ethnic Group | Unknown | + + + Author + + + | Author | [facility] | + + + | Organization | [facility] | + + + | Address | Unknown | + + + | Phone | Unavailable | + + + Support + + + + + | Name | Relationship | Address | Phone | + + + + + | Harsh Ruiz | ECON | [address] | | | | | [place] | | | | | [address] | | + + + + + Care Team Providers + +------+ + | Care Drilling Field Professional Name | Role | Phone | + +------+ + | Melissa Shayan DO | PCP | | + +------+ + Encounter Details +--------+---------+ + + + | Date | Type | Department | Care Team | Description | +--------+---------+ + + + | 02/11/ | Office | [facility] | Neil Frye MD | Essential | | 2019 | Visit | [address] | [address] | hypertension, benign | | | | [address] | [address] [place], [place] | (Primary Dx); CKD | | | | [place] [address] | [address] | (chronic kidney | | | | [phone] | | disease) stage 4, | | | | | | GFR 15-29 ml/min | | | | | | (HCC); Stress | | | | | | incontinence of | | | | | | urine; Persistent | | | | | | proteinuria; Vitamin | | | | | | D deficiency | +--------+---------+ + + + Social History + +-------+ +--------+------+ | Tobacco Use | Types | Packs/Day | Years | Date | | | | | Used | | + +-------+ +--------+------+ | Former Smoker | | | | | + +-------+ +--------+------+ + +---+---+---+ | Smokeless Tobacco: | | | | | Never Used | | | | + +---+---+---+ + + +---------+ + | Alcohol Use | Drinks/We | oz/Week | Comments | | | ek | | | + + +---------+ + | No | | | wine only rare occassions | + + +---------+ + + + + | Sex Assigned at | Date Recorded | | | | + + + | Not on file | | + + + as of this encounter Last Filed Vital Signs + + + + | Vital Sign | Reading | Time Taken | + + + + | Blood Pressure | 170/98 | 02/11/2018 11:00 AM PST | + + + + | Pulse | 75 | 02/11/2018 11:00 AM PST | + + + + | Temperature | - | - | + + + + | Respiratory Rate | - | - | + + + + | Oxygen Saturation | 98% | 02/11/2018 11:00 AM PST | + + + + | Inhaled Oxygen | - | - | | Concentration | | | + + + + | Weight | 108.7 kg (239 lb | 02/11/2018 11:00 AM PST | | | 11.2 oz) | | + + + + | Height | 170.2 cm (5' 7") | 02/11/2018 11:00 AM PST | + + + + | Body Mass Index | 37.54 | 02/11/2018 11:00 AM PST | + + + + in this encounter Instructions Patient Instructions - Neil Frye MD - 02/11/2018 10:40 AM PSTDiscussions/Recommendatio ns: I discussed today with Mrs. Ruiz the meaning of her chronic kidney disease and the int eraction of that with her history of malignant hypertension and morbid obesity. I stressed the importance of keeping her blood pressure controlled and avoiding getting dehydrated if we are to have a chance at helping preserve her renal function. She showed go od understanding. I gave her instructions again on how to chart her blood pressure in the appropriate singh er at home. She is to call us if they fall outside of the optimal provided range. She will bring her sphygmomanometer for validation once a year. She will strictly abide by a low-sodium & low-purine diet. She will also follow a low-p urine diet. She will avoid all kinds of NSAIDs for analgesia. Also: I started her on Indapamide 0.625 mg daily. she will bring me back her home BP charts in 6 weeks. At that time, I will decide whethe r any changes to her vasoactive regimen are warranted. I advised her to exercise regularly but safely & to try to lose weight methodically; She voiced good understanding. As she had not been taking her Vitamin D2 since spring 2017 she tells me: I will Keep h er on Cholecalciferol (Vitamin D3) at 5,000 i.u. daily with a meal. Let us know of any planned IV contrast study if deemed necessary so it can be safely don e. Make all healthcare providers aware of the presence of kidney disease and request to adj ust all medications according to level of kidney function and to avoid nephrotoxic medicatio ns if possible, including but not limited to antibiotics. She will continue to F/U with your office regularly. I sent her for a repeat BMP, CBC in 6 weeks. She will have RFP, CBC, uric acid, intact PTH, rU/A, Urine total glmaymp-ti-jjakrygrez r atio done before she comes back in 3 months. Patient has expressed understanding of today's instructions, all questions have been ans wered to their satisfaction and written instructions have been provided. in this encounter Progress Notes Neil Frye MD - 02/11/2018 10:40 AM PSTFormatting of this note may be different from th pamela original. Subjective: Patient ID: Jackelyn Ruiz is a 72 y.o. female. Patient Active Problem List Diagnosis CKD (chronic kidney disease) stage 4, GFR 15-29 ml/min ([facility]) Class 2 obesity due to excess calories without serious comorbidity with body mass index (BMI) of 36.0 to 36.9 in adult Essential hypertension, benign Persistent proteinuria Hematuria, microscopic Hyperuricemia Vitamin D deficiency Incontinence of urine Female bladder prolapse KOREY (obstructive sleep apnea) Nephrolithiasis BPPV (benign paroxysmal positional vertigo) Dear Dr Torres: I saw your patient, Mrs. Ruiz, in the office today. She is here to follow up on history of stage IV CKD & its associated complications. She had an DARSHAN from volume depletion in 05/2011. Her diuretics were downtitrated but she co ntinued to have dizziness. I had sent her for evaluation by the Cardiology team. A tilt tabl e test was positive. She was then taken off of the HCTZ & was instructed to cut the Torsemid e to 5 mg daily. Unfortunately, she stopped the Torsemide altogether. Her peripheral edema g ot worse. We had to gradually restart the Torsemide & reintroduce the HCTZ at a low dose. At a later stage, her HCTZ was stopped: because of the decline in the renal function, she tell s me. She tells me she feels poor . She still has 3-4 times nightly nocturia. She still has mild stress incontinence & urge incontinence symptoms. She wears a pad. She'd visited with the Urology team in [place] & was advised a bladder suspension surgery. She had decided no t to go for that. She reports dizziness when she moves her head & postural. She F/U's with your office for t hose & for her chronic low back pain. She reports a fall at home in September 2015, she was walking in her home and just "went down" , called 911, was taken to the ER, reports nothing was found to be the cause. She fish d followed up with her PCP. She reports she had a Holter monitor test, was negative. She tripped in 02/2017 & fell & broke her ankle. No dizziness then or LOC. The following portions of the patient's history were reviewed and updated as appropriate: a llergies, current medications, past medical history, past social history, past surgical hist ory and problem list. Review of Systems: As in HPI. Her review of systems was otherwise completely negative. Current Outpatient Prescriptions Medication Sig Dispense Refill allopurinol (ZYLOPRIM) 300 MG tablet Take 1 tablet by mouth daily. 90 tablet 3 cholecalciferol 5000 units capsule Take 1 capsule by mouth daily. 90 capsule 3 cyclobenzaprine (FLEXERIL) 10 MG tablet Take 10 mg by mouth daily. diphenhydramine-acetaminophen (TYLENOL PM) 25-500 MG TABS Take 1 tablet by mouth nightl y as needed. DULoxetine (CYMBALTA) [address] capsule Take 60 mg by mouth daily. gabapentin (NEURONTIN) 100 MG capsule Take 100 mg by mouth 3 (three) times daily. indapamide (LOZOL) 1.25 MG tablet Take 0.5 tablets by mouth daily. 15 tablet 11 losartan (COZAAR) 25 MG tablet Take 1 tablet by mouth 2 (two) times daily. (Patient taran ing differently: Take 50 mg by mouth 2 (two) times daily.) 180 tablet 3 losartan (COZAAR) 50 MG tablet Take 1 tablet by mouth 2 (two) times daily. 180 tablet 3 metoprolol (TOPROL-XL) 100 MG 24 hr tablet Take 100 mg by mouth daily. simvastatin (ZOCOR) 40 MG tablet Take 40 mg by mouth nightly. torsemide (DEMADEX) 10 MG tablet Take 1 tablet by mouth every other day. Indications: E scot, High Blood Pressure 60 tablet 11 atenolol (TENORMIN) 50 MG tablet Take 1 tablet by mouth 2 (two) times daily. 180 tablet 3 docusate sodium (COLACE) 100 MG capsule Take 100 mg by mouth daily. ergocalciferol (DRISDOL) 66602 UNITS capsule Take 1 capsule by mouth 3 (three) times a week. (Patient not taking: Reported on 05/07/2017) 12 capsule 3 fluoxetine (PROZAC) 40 MG capsule Take 40 mg by mouth daily. fluticasone (FLONASE) 50 MCG/ACT nasal spray 1 spray by Nasal route as needed. levothyroxine (SYNTHROID, LEVOTHROID) 75 MCG tablet Take 75 mcg by mouth daily. No current facility-administered medications for this visit. Objective: Physical Exam: BP (!) 170/98 (BP Location: Left upper arm, Patient Position: Sitting) | Pulse 75 | Ht 1. 702 m (5' 7") | Wt 108.7 kg (239 lb 11.2 oz) | SpO2 98% | BMI 37.54 kg/m General appearance: Pleasant, obese, not in acute distress. Neck: Supple without tracheal deviation or jugular venous distension. Head and ENT: Head is atraumatic. The oropharynx is without any erythema or thrush. Eyes: Anicteric. The extraocular muscle movements are normal. Lungs: Clear to auscultation bilaterally and resonant. There are no wheezes. Heart: Regular rate and rhythm without any rub, gallops, or murmurs. Abdominal exam: Obese. Soft and nontender with normal bowel sounds. Musculoskeletal: tenderness in left low back with palpation: lower back paraspinal muscles, L>R. No costovertebral angle tenderness bilaterally. Extremities: Warm to touch with 1+ pitting leg/ankle edema. There is no cyanosis or clubb ing. Varicosities noted in both legs. Skin: There are no rashes, petechiae, or ecchymosis. There is no purpura. Old changes of s tasis dermatitis noted distally in both legs. Neurological: Awake, alert, and oriented to time, place, and person. Normal gross motor po wer. There is no asterixis. Psychiatric: The patient s behavior is normal. Judgment and thought content are normal. Lab Results Component Value Date BUN 44 (A) 01/14/2018 CREATININE 2.18 (A) 01/14/2018 EGFR 22 (A) 01/14/2018 NA 142 01/14/2018 K 4.5 01/14/2018 CL 103 01/14/2018 CO2 27 01/14/2018 CA 9.1 01/14/2018 PHOS 4.3 10/30/2017 MG 1.7 10/18/2015 ALB 3.7 10/30/2017 HGB 10.3 (A) 12/17/2017 URICACID 4.6 05/04/2017 WBC 6.1 12/17/2017 HCT 30.8 (A) 12/17/2017 FERRITIN 206.3 (A) 12/17/2017 LABIRON 48.5 12/17/2017 LABPROT 1,431.5 (A) 10/30/2017 [id number] 46 07/05/2017 OLD LABORATORY DATA: Laboratory tests have been reviewed from 05/02/11: hemoglobin 11.8; so dium 139; potassium 3.7; calcium 9.2; BUN 28; creatinine 1.32; estimated GFR 41; phosphorus 3.8; urinalysis positive for 25 prot, 50 blood, 5 WBC, 5 RBC, 3+ epith, 2+ bact; spot protei n to creatinine ratio 423 mg/g. OLD LABORATORY DATA: Laboratory tests have been reviewed from 04/05/2011: hemoglobin 12.1; potassium 4.2; calcium 9.4; creatinine 1.16; estimated GFR 47; phosphorus 3.2; magnesium 1.6 ; uric acid 4.6 25-hydroxyvitamin D level 55; urinalysis positive for 75 prot, 150 blood, 10 WBC, 15 RBC, 3+ epith, 3+ bact; spot protein to creatinine ratio to follow mg/g. OLD LABORATORY DATA: Laboratory tests have been reviewed from 03/14/2011: hemoglobin 12.9; p otassium 3.9; calcium 9.2; creatinine 1.41; estimated GFR 38; phosphorus 3.2; uric acid 4.9; intact PTH 58; 25-hydroxyvitamin D level 52; urinalysis positive for 25 prot, 150 blood, 2 WBC, 10 RBC, 1+ bact; spot protein to creatinine ratio 228 mg/g. OLD LABORATORY DATA: Laboratory tests have been reviewed from 01/09/2011: hemoglobin 12.9; potassium 4.2; calcium 9.3; creatinine 1.5; estimated GFR 34; phosphorus 2.8; magnesium 2; uric acid 7.7; intact PTH 58; 25-hydroxyvitamin D level 58; urinalysis positive for protein, blood, RBC, epithelial cells & bacteria; spot protein to creatinine ratio 430 mg/g. Assessment and Plan: ASSESSMENT: Mrs. Ruiz is a 72 y.o. lady with a stage IV chronic kidney disease in the se tting of history of malignant hypertension, which had been longstanding for more than 30 yea rs, morbid obesity raising the possibility of FSGS too. Her proteinuria had improved follow ing the introduction of the ACEi and mineralocorticoid receptor antagonist. But unfortunate ly, we had to stop both due to DARSHAN & hyperkalemia. She was back on a low dose of the ACEi. S he has autonomic dysfunction with a positive tilt table test. She had an improved hemodynamically induced DARSHAN from volume depletion in 05/2011. On 09/16/2012 she visited the ED for a mid back pain. Because of her hx of nephrolithiasis, she had a CT that showed multiple pelvic stones. She had microscopic hematuria (which is ch ronic). RENAL FUNCTION: Lower than baseline but relatively stable BLOOD PRESSURE: Uncontrolled at home BLOOD SUGAR: Normal. ELECTROLYTES: okay ANEMIA: Mild; mild macrocytosis VITAMIN D: Corrected with treatment. PARATHYROID HORMONE: Near normal for her. URIC ACID: Markedly improved with treatment. PROTEINURIA: Moderate; slowly worsening URINALYSIS: Microscopic hematuria has improved. Negative documented workup for a neoplas tic bladder origin (10/04/2010). Likely secondary to her intrinsic renal pathology. VOLUME STATUS: Adequate now, possible low at times due to two diuretics Discussions/Recommendations: I discussed today with Mrs. Ruiz the meaning of her chronic kidney disease and the int eraction of that with her history of malignant hypertension and morbid obesity. I stressed the importance of keeping her blood pressure controlled and avoiding getting dehydrated if we are to have a chance at helping preserve her renal function. She showed go od understanding. I gave her instructions again on how to chart her blood pressure in the appropriate [facility] er at home. She is to call us if they fall outside of the optimal provided range. She will bring her sphygmomanometer for validation once a year. She will strictly abide by a low-sodium & low-purine diet. She will also follow a low-p urine diet. She will avoid all kinds of NSAIDs for analgesia. Also: I started her on Indapamide 0.625 mg daily. (I am unable to uptitrate her RAAS inhibition because of her hx of hyperkalemia with dasha t) she will bring me back her home BP charts in 6 weeks. At that time, I will decide whethe r any changes to her vasoactive regimen are warranted. I advised her to exercise regularly but safely & to try to lose weight methodically; She voiced good understanding. As she had not been taking her Vitamin D2 since spring 2017 she tells me: I will Keep h er on Cholecalciferol (Vitamin D3) at 5,000 i.u. daily with a meal. I again sent her to be sen by the Urology team here locally for her significant stress i ncontinence symptoms. Let us know of any planned IV contrast study if deemed necessary so it can be safely don e. Make all healthcare providers aware of the presence of kidney disease and request to adj ust all medications according to level of kidney function and to avoid nephrotoxic medicatio ns if possible, including but not limited to antibiotics. She will continue to F/U with your office regularly. I sent her for a repeat BMP, CBC in 6 weeks. She will have RFP, CBC, uric acid, intact PTH, rU/A, Urine total ntxzvxf-fi-eagbazxfyl r atio done before she comes back in 3 months. Patient has expressed understanding of today's instructions, all questions have been ans wered to their satisfaction and written instructions have been provided. More than 13 minutes of this 25-minute visit was spent in education and counseling. Thank you Dr Torres for the opportunity to follow up with this patient and be part of the c are team. Please do not hesitate to call me at any time with questions or concerns. Truly yours, MD SHAWNEE Lam FACP in this encounter Plan of Treatment +--------+---------+ + + + | Date | Type | Specialty | Care Team | Description | +--------+---------+ + + + | 05/13/ | Office | Nephrology | Neil Frye MD | | | 2019 | Visit | | [address] | | | | | | [address] [place], [place] | | | | | | [address] | | | | | | | | +--------+---------+ + + + as of this encounter Visit Diagnoses + + | Diagnosis | + + | Essential hypertension, benign - Primary | + + | CKD (chronic kidney disease) stage 4, GFR 15-29 ml/min ([facility]) | + + | Chronic kidney disease, Stage IV (severe) | + + | Stress incontinence of urine | + + | Persistent proteinuria | + + | Proteinuria | + + | Vitamin D deficiency | + + | Unspecified vitamin D deficiency | + +
--- OUTSIDE RECORDS SUMMARY | ~2018-05-03 | XMS | Clinical Summary ---
Demographics + + + | Address | [address] | | | [place] [address] | + + + | Home Phone | | + + + | Preferred Language | Unknown | + + + | Marital Status | | + + + | Scientology Affiliation | Unknown | + + + | Race | White | + + + | Ethnic Group | Not or | + + + Author + + + | Author | [facility] | + + + | Organization | [facility] | + + + | Address | Unknown | + + + | Phone | Unavailable | + + + Support + + +---------+ + | Name | Relationship | Address | Phone | + + +---------+ + | ESTRADA CORDON | ECON | Unknown | | + + +---------+ + Care Team Providers + +------+ + | Care Welder Gas Name | Role | Phone | + +------+ + | Myah Anguiano | PP | Unavailable | + +------+ + Source Comments MILTON is fully live on both [facility] Ambulatory and [facility] InPatient.[facility] Allergies + + + + + + [...] | + + + + + | Pneumococcal (Adult) | | | | | (1 of 2 - PCV13) | 3 | | | + + + + + | Influenza (Flu) | | | | | vaccination (#1) | 8 | | | + + + + + Results Not on filefrom Last 3 Months Insurance + +--------+ +------+ + + | Payer | Benefi | Subscriber | Type | Phone | Address | | | t Plan | ID | | | | | | / | | | | | | | Group | | | | | + +--------+ +------+ + + | [employer] [place] | BLUE | [phone] | PPO | [phone] | [address] [address] [place] | | | CROSS | | | [phone] | [place] [address] | | | [employer] | | | | | | | L | | | | | + +--------+ +------+ + + + +--------+ +--------+ + + | Guarantor Name | Accoun | Relation to | Date | Phone | Billing Address | | | t Type | Patient | of | | | | | | | | | | + +--------+ +--------+ + + | SUZANNE KIMBALL | Person | Self [birth year] | Home: | [address] [place] [address] ST | | | al/Fam | | 1946 | [phone] | [place] [address] | | | [place] | | | [phone] | | + +--------+ +--------+ + +
--- OUTSIDE RECORDS SUMMARY | ~2018-05-03 | XMS | Encounter Summary ---
Demographics + + + | Address | [address] | | | [place] [address] | + + + | Home Phone | | + + + | Preferred Language | Unknown | + + + | Marital Status | | + + + | Catholic Affiliation | Unknown | + + + | Race | Unknown | + + + | Ethnic Group | Unknown | + + + Author + + + | Author | [facility] | + + + | Organization | [facility] | + + + | Address | Unknown | + + + | Phone | Unavailable | + + + Support + + + + + | Name | Relationship | Address | Phone | + + + + + | Harsh Ruiz | ECON | [address] | | | | | [place] | | | | | [address] | | + + + + + Care Team Providers + +------+ + | Care Crude Oil Driver Name | Role | Phone | + +------+ + | Melissa Shayan DO | PCP | | + +------+ + Reason for Visit +--------+ + | Reason | Comments | +--------+ + | Other | Labs | +--------+ + Encounter Details +--------+ + + + + | Date | Type | Department | Care Team | Description | +--------+ + + + + | 02/06/ | Documentati | [facility] | [place], | Other (Labs) | | 2019 | on Only | [place] [address] | | | | | [address] | | | | | | [place], [place] [address] | | | | | | [phone] | | | +--------+ + + + + Social History + +-------+ [...] + + + as of this encounter Plan of Treatment +--------+---------+ + + + | Date | Type | Specialty | Care Team | Description | +--------+---------+ + + + | 05/13/ | Office | Nephrology | Neil Frye MD | | | 2019 | Visit | | [address] | | | | | | [address] [place] | | | | | | [address] | | | | | | | | +--------+---------+ + + + as of this encounter Visit Diagnoses Not on filein this encounter"
--- OUTSIDE RECORDS SUMMARY | ~2018-05-03 | XMS | Clinical Summary ---
Demographics + + + | Address | [address] | | | [place] [address] | + + + | Home Phone | | + + + | Preferred Language | Unknown | + + + | Marital Status | | + + + | Hinduism Affiliation | Unknown | + + + [...] Team Providers + +------+ + | Care Maintenance Painter Name | Role | Phone | + +------+ + | Myah Anguiano | PP | Unavailable | + +------+ + Source Comments MILTON is fully live on both [facility] Ambulatory and [facility] InPatient.[facility] Allergies + + + + + + [...] | PPO | [phone] | [address] [address] [place] | | | CROSS | | | [address] | [place] [address] | | | [place] | | | [...] | Self | [birth year] | Home: | [address] [place] [address] [address] | | | al/Fam | | 1946 | [phone] | [place] [address] | | | [place] | | | [address] | | + +--------+ +--------+ + +
--- OUTSIDE RECORDS SUMMARY | ~2018-05-03 | XMS | Clinical Summary ---
Demographics + + + | Address | [address] | | | [place] [address] | + + + | Home Phone | | + + + | Preferred Language | Unknown | + + + | Marital Status | | + + + | Voodoo Affiliation | Unknown | + + + | Race | Unknown | + + + | Ethnic Group | Unknown | + + + Author + + + | Author | [facility] | + + + | Organization | [facility] | + + + | Address | Unknown | + + + | Phone | Unavailable | + + + Support + + + + + | Name | Relationship | Address | Phone | + + + + + | Harsh Kimball | ECON | [address] | | | | | [place] | | | | | [address] | | + + + + + Care Team Providers + +------+ + | Care Concrete Crusher Loader Operator Name | Role | Phone | + +------+ + | Shayan oTrres | PP | | + +------+ + Allergies + + + + + + | Active Allergy | Reactions | Severity | Noted | Comments | | | | | Date | | + + + + + + | Benazepril | Other (See Comments) | Medium | 09/18/19 | Hyperkalemia. | | | | | 12 | | + + + + + + | Metronidazole Hcl | Other (See Comments) | | 07/27/19 | abstracted | | | | | 11 | | + + + + + + Current Medications + + +---------+---------+------+------+-------+ | Prescription | Sig. | Disp. | Refills | Star | End | Statu | | | | | | t | Date | s | | | | | | Date | | | + + +---------+---------+------+------+-------+ | cyclobenzaprine | Take 10 mg by mouth | | | 09/07 | | Activ | | (FLEXERIL) 10 MG | daily. | | | 020 | | e | | tablet | | | | 11 | | | + + +---------+---------+------+------+-------+ | levothyroxine | Take 75 mcg by mouth | | | 10/0 | | Activ | | (SYNTHROID, | daily. | | | 04/24 | | e | | LEVOTHROID) 75 MCG | | | | 11 | | | | tablet | | | | | | | + + +---------+---------+------+------+-------+ | | Take 1 tablet by | | | | | Activ | | diphenhydramine-acet | mouth nightly as | | | | | e | | aminophen (TYLENOL | needed. | | | | | | | PM) 25-500 MG TABS | | | | | | | + + +---------+---------+------+------+-------+ | fluticasone | 1 spray by Nasal | | | | | Activ | | (FLONASE) 50 MCG/ACT | route as needed. | | | | | e | | nasal spray | | | | | | | + + +---------+---------+------+------+-------+ | simvastatin | Take 40 mg by mouth | | | | | Activ | | (ZOCOR) 40 MG tablet | nightly. | | | | | e | + + +---------+---------+------+------+-------+ | fluoxetine | Take 40 mg by mouth | | | | | Activ | | (PROZAC) 40 MG | daily. | | | | | e | | capsule | | | | | | | + + +---------+---------+------+------+-------+ | docusate sodium | Take 100 mg by mouth | | | | | Activ | | (COLACE) 100 MG | daily. | | | | | e | | capsule | | | | | | | + + +---------+---------+------+------+-------+ | allopurinol | Take 1 tablet by | 90 | 3 | 03/3 | | Activ | | (ZYLOPRIM) 300 MG | mouth daily. | tablet | | 1/20 | | e | | tablet | | | | 15 | | | + + +---------+---------+------+------+-------+ | ergocalciferol | Take 1 capsule by | 12 | 3 | 06/0 | | Activ | | (DRISDOL) [id number] | mouth 3 (three) | capsule | | 8/20 | | e | | UNITS | times a week. | | | 16 | | | | capsuleIndications: | | | | | | | | Vitamin D | | | | | | | | deficiency, CKD | | | | | | | | (chronic kidney | | | | | | | | disease), stage III | | | | | | | | (HCC) | | | | | | | + + +---------+---------+------+------+-------+ | torsemide | Take 1 tablet by | 60 | 11 | 10/06 | | Activ | | (DEMADEX) 10 MG | mouth every other | tablet | | 4/20 | | e | | tabletIndications: | day. Indications: | | | 16 | | | | Edema, Hypertension | Edema, High Blood | | | | | | | | Pressure | | | | | | + + +---------+---------+------+------+-------+ | atenolol | Take 1 tablet by | 180 | 3 | 04/05 | | Activ | | (TENORMIN) 50 MG | mouth 2 (two) times | tablet | | 3/20 | | e | | tabletIndications: | daily. | | | 17 | | | | Essential | | | | | | | | hypertension, benign | | | | | | | + + +---------+---------+------+------+-------+ | metoprolol | Take 100 mg by mouth | | | 03/ | | Activ | | (TOPROL-XL) 100 MG | daily. | | | 0/20 | | e | | 24 hr tablet | | | | 18 | | | + + +---------+---------+------+------+-------+ | losartan (COZAAR) | Take 1 tablet by | 180 | 3 | 06/05 | 06/05 | Activ | | 25 MG tablet | mouth 2 (two) times | tablet | | 08/24 | 08/24 | e | | | daily. | | | 18 | 19 | | + + +---------+---------+------+------+-------+ | losartan (COZAAR) | Take 1 tablet by | 180 | 3 | /2 | 08/06 | Activ | | 50 MG tablet | mouth 2 (two) times | tablet | | 05/25 | 05/25 | e | | | daily. | | | 18 | 19 | | + + +---------+---------+------+------+-------+ | DULoxetine | Take 60 mg by mouth | | | | | Activ | | (CYMBALTA) [address] | daily. | | | | | e | | capsule | | | | | | | + + +---------+---------+------+------+-------+ | gabapentin | Take 100 mg by mouth | | | | | Activ | | (NEURONTIN) 100 MG | 3 (three) times | | | | | e | | capsule | daily. | | | | | | + + +---------+---------+------+------+-------+ | cholecalciferol | Take 1 capsule by | 90 | 3 | 10/0 | 10/0 | Activ | | 5000 units capsule | mouth daily. | capsule | | /20 | /20 | e | | | | | | 18 | 19 | | + + +---------+---------+------+------+-------+ | indapamide (LOZOL) | Take 0.5 tablets by | 15 | 11 | 11/2 | | Activ | | 1.25 MG | mouth daily. | tablet | | 10/25 | | e | | tabletIndications: | | | | 18 | | | | CKD (chronic kidney | | | | | | | | disease) stage 4, | | | | | | | | GFR 15-29 ml/min | | | | | | | | (HCC), Benign | | | | | | | | essential | | | | | | | | hypertension | | | | | | | + + +---------+---------+------+------+-------+ Active Problems + + + | Problem | Noted Date | + + + | BPPV (benign paroxysmal positional vertigo) | 04/24/2014 | + + + | Nephrolithiasis | 09/18/2011 | + + + + + | Overview: For decades; the latest stone she passed was in | | early . | + + + + + | KOREY (obstructive sleep apnea) | 05/08/2011 | + + + | Vitamin D deficiency | 03/20/2011 | + + + | Incontinence of urine | 03/20/2011 | + + + | Female bladder prolapse | 03/20/2011 | + + + | Hyperuricemia | 01/16/2011 | + + + | CKD (chronic kidney disease) stage 4, GFR 15-29 ml/min ([facility]) | 11/14/2010 | + + + | Class 2 obesity due to excess calories without serious | 11/14/2010 | | comorbidity with body mass index (BMI) of 36.0 to 36.9 in adult | | + + + | Essential hypertension, benign | 11/14/2010 | + + + | Persistent proteinuria | 11/14/2010 | + + + | Hematuria, microscopic | 11/14/2010 | + + + + + | Overview: No dysplastic cells on urine cytology. | + + Resolved Problems + + + + | Problem | Noted | Resolved | | | Date | Date | + + + + | Hypokalemia | 04/25/19 | | | | 15 | 6 | + + + + | DARSHAN (acute kidney injury) | 04/05/19 | | | | 12 | 3 | + + + + | Volume depletion | 04/05/19 | | | | 12 | 3 | + + + + | CKD (chronic kidney disease), stage III | 11/15/19 | | | | 11 | 8 | + + + + | Hyperkalemia | 11/15/19 | | | | 11 | 6 | + + + + + + | Overview: Improved with stopping Spironolactone. | + + + + + + | Anemia of chronic renal failure | 11/15/19 | | | | 11 | 3 | + + + + Encounters +--------+ + + + + | Date | Type | Specialty | Care Team | Description | +--------+ + + + + | 05/01/ | Telephone | | Hussain, | | | 2019 | | | [place] | | +--------+ + + + + | 02/11/ | Office | | Neil Frye MD | Essential | | 2019 | Visit | | | hypertension, benign | | | | | | (Primary Dx); CKD | | | | | | (chronic kidney | | | | | | disease) stage 4, | | | | | | GFR 15-29 ml/min | | | | | | (HCC); Stress | | | | | | incontinence of | | | | | | urine; Persistent | | | | | | proteinuria; Vitamin | | | | | | D deficiency | +--------+ + + + + | 02/11/ | Telephone | | Hussain, | | | 2018 | | | [place] | | +--------+ + + + + | 02/06/ | Documentati | | Hussain, | Other (Labs) | | 2018 | on Only | | [place] | | +--------+ + + + + | 02/06/ | Orders Only | | Hussain, | Vitamin D | | 2018 | | | [place] | deficiency; | | | | | | Hyperuricemia; | | | | | | Hematuria, | | | | | | microscopic; | | | | | | Persistent | | | | | | proteinuria; | | | | | | Essential | | | | | | hypertension, | | | | | | benign; CKD (chronic | | | | | | kidney disease) | | | | | | stage 4, GFR 15-29 | | | | | | ml/min ([facility]); | | | | | | Nephrolithiasis | +--------+ + + + + | 02/04/ | Telephone | | Hussain, | | | 2017 | | | [place] | | +--------+ + + + + from Last 3 Months Family History + + +------+ + | Medical History | Relation | Name | Comments | + + +------+ + | Alcohol abuse | Father | | | + + +------+ + | Hypertension | Mother | | | + + +------+ + | Liver cancer | Mother | | | + + +------+ + + +------+--------+ + | Relation | Name | Status | Comments | + +------+--------+ + | Father | | | | + +------+--------+ + | Mother | | | | + +------+--------+ + Social History + +-------+ +--------+------+ | [...] + + + + | Temperature | 36.1 C (96.9 F) | 07/09/2017 10:35 AM PDT | + + + + | Respiratory Rate | 14 | 04/26/2012 12:03 PM PDT | + + + + | [...] AM PST | + + + + Plan of Treatment +--------+---------+ + + + | Date | Type | Specialty | Care Team | Description | +--------+---------+ + + + | 05/13/ | Office | | Neil Frye MD | | | 2019 | Visit | | [address] | | | | | | [address] [place] | | | | | | [address] | | | | | | | | +--------+---------+ + + + + + + + + | Health Maintenance | Due Date | Last Done | Comments | + + + + + | Vaccine: | | | | | Dtap/Tdap/Td (1 - | 7 | | | | Tdap) | | | | + + + + + | Breast Cancer | | | | | Screening | 8 | | | | (Mammogram) | | | | + + + + + | Colon Cancer | | | | | Screening | 8 | | | | (Colonoscopy) | | | | + + + + + | Vaccine: Zoster (1 | | | | | of 2) | 8 | | | + + + + + | DEXA SCAN SCREENING | | | | | | 3 | | | + + [...] Not on filefrom Last 3 Months Insurance +---------+--------+ +------+-------+ + | Payer | Benefi | Subscriber | Type | Phone | Address | | | t Plan | ID | | | | | | / | | | | | | | Group | | | | | +---------+--------+ +------+-------+ + | PREMERA | PREMER | [id number] | | | [address] [address] | | | A BLUE | | | | [place], [place] | | | [place] | | | | [phone] | | | FED | | | | | | | PPO | | | | | +---------+--------+ +------+-------+ + + +--------+ +--------+ + + | Guarantor Name | Accoun | Relation to | Date | Phone | Billing Address | | | t Type | Patient | of | | | | | | | | | | + +--------+ +--------+ + + | SUZANNE KIMBALL | Person | Self | [birth year] | Home: | [address] [place] [address] | | | al/Fam | | 1946 | [phone] | [place] | | | [place] | | | [phone] | [address] | + +--------+ +--------+ + +
--- OUTSIDE RECORDS SUMMARY | ~2018-05-03 | XMS | Encounter Summary ---
Demographics + + + | Address | [address] | | | [place] [address] | + + + | Home Phone | | + + + | Preferred Language | Unknown | + + + | Marital Status | | + + + | Judaism Affiliation | Unknown | + + + | Race | Unknown | + + + | Ethnic Group | Unknown | + + + Author + + + | Author | [email or web address] | + + + | Organization | [facility] | + + + | Address | Unknown | + + + | Phone | Unavailable | + + + Support + + + + + | Name | Relationship | Address | Phone | + + + + + | Harsh Ruiz | ECON | [address] | | | | | [place] | | | | | [address] | | + + + + + Care Team Providers + +------+ + | Care Obiee Obia Solution Architect Name | Role | Phone | + +------+ + | Melsisa Shayan | PCP | | + +------+ + Encounter Details +--------+ + + + + | Date | Type | Department | Care Team | Description | +--------+ + + + + | 05/01/ | Telephone | [facility] | Hussain, | | | 2018 | | [place] [address] | [place] | | | | | [address] | | | | | | [place] [address] | | | | | | [phone] | | | +--------+ + + + [...] [place] | | | | | | [address] | | | | | | | | +--------+---------+ + + + as of this encounter Visit Diagnoses Not on filein this encounter"
--- OUTSIDE RECORDS SUMMARY | ~2018-05-03 | XMS | Encounter Summary ---
Demographics + + + | Address | [address] | | | [place] [address] | + + + | Home Phone | | + + + | Preferred Language | Unknown | + + + | Marital Status | | + + + | Christian Affiliation | Unknown | + + + | Race | Unknown | + + + | Ethnic Group | Unknown | + + + Author + + + | Author | [email or web address] | + + + | Organization | [email or web address] | + + + | Address | Unknown | + + + | Phone | Unavailable | + + + Support + + + + + | Name | Relationship | Address | Phone | + + + + + | Harsh Ruiz | ECON | [address] | | | | | [place] | | | | | [address] | | + + + + + Care Team Providers + +------+ + | Care Entry Table Operator Name | Role | Phone | [...] | | | | | [place] [address] | | | | | | [phone] | | | +--------+ + + + [...] [place] | | | | | | [address] | | | | | | | | +--------+---------+ + + + as of this encounter Visit Diagnoses Not on filein this encounter"
--- OUTSIDE RECORDS SUMMARY | ~2018-05-03 | XMS | Encounter Summary ---
Demographics + + + | Address | [address] | | | [place] [address] | + + + | Home Phone | | + + + | Preferred Language | Unknown | + + + | Marital Status | | + + + | Muslim Affiliation | Unknown | + + + | Race | Unknown | + + + | Ethnic Group | Unknown | + + + Author + + + | Author | [facility] | + + + | Organization | [facility] | + + + | Address | Unknown | + + + | Phone | Unavailable | + + + Support + + + + + | Name | Relationship | Address | Phone | + + + + + | Harsh Ruiz | ECON | [address] | | | | | [place] | | | | | [address] | | + + + + + Care Team Providers + +------+ + | Care Picking Machine Operator Helper Name | Role | Phone | + +------+ + | Melissa Shayan | PCP | | + +------+ + Encounter Details +--------+ + + + + | Date | Type | Department | Care Team | Description | +--------+ + + + + | 02/11/ | Telephone | [facility] | Hussain, | | | 2019 | | [address] | [place] | | | | | [address] | | | | | | [place] [address] | | | | | | [phone] | | | +--------+ + + + [...] | | | | | | [address] [place] | | | | | | [address] | | | | | | | | +--------+---------+ + + + + +--------+ + + | Name | Priori | Associated Diagnoses | Order Schedule | | | ty | | | + +--------+ + + | Basic metabolic panel | Routin | CKD (chronic | Expected: | | | e | kidney disease) | 03/25/2018, Expires: | | | | stage 4, GFR 15- | 02/11/2019 | | | | ml/min (HCC) | | | | | Essential | | | | | hypertension, benign | | | | | Persistent | | | | | proteinuria | | | | | Hematuria, | | | | | microscopic | | + +--------+ + + | CBC W/Auto Diff (Reflex to | Routin | CKD (chronic | Expected: | | Manual) | e | kidney disease) | 03/25/2018, Expires: | | | | stage 4, GFR 15- | 02/11/2019 | | | | ml/min (HCC) | | | | | Essential | | | | | hypertension, benign | | | | | Persistent | | | | | proteinuria | | | | | Hematuria, | | | | | microscopic | | + +--------+ + + | Renal function panel | Routin | CKD (chronic | Expected: | | | e | kidney disease) | 04/11/2018, Expires: | | | | stage 4, GFR 15-29 | 02/11/2019 | | | | ml/min (HCC) | | | | | Essential | | | | | hypertension, benign | | | | | Persistent | | | | | proteinuria | | | | | Hematuria, | | | | | microscopic | | + +--------+ + + | CBC W/Auto Diff (Reflex to | Routin | CKD (chronic | Expected: | | Manual) | e | kidney disease) | 04/11/2018, Expires: | | | | stage 4, GFR 15-29 | 02/11/2019 | | | | ml/min (HCC) | | | | | Essential | | | | | hypertension, benign | | | | | Persistent | | | | | proteinuria | | | | | Hematuria, | | | | | microscopic | | + +--------+ + + | Uric acid | Routin | CKD (chronic | Expected: | | | e | kidney disease) | 04/11/2018, Expires: | | | | stage 4, GFR 15-29 | 02/11/2019 | | | | ml/min (HCC) | | | | | Essential | | | | | hypertension, benign | | | | | Persistent | | | | | proteinuria | | | | | Hematuria, | | | | | microscopic | | + +--------+ + + | PTH intact no calcium | Routin | CKD (chronic | Expected: | | | e | kidney disease) | 04/11/2018, Expires: | | | | stage 4, GFR 15-29 | 02/11/2019 | | | | ml/min (HCC) | | | | | Essential | | | | | hypertension, benign | | | | | Persistent | | | | | proteinuria | | | | | Hematuria, | | | | | microscopic | | + +--------+ + + | Urinalysis (reflex to micro) | Routin | CKD (chronic | Expected: | | | e | kidney disease) | 04/11/2018, Expires: | | | | stage 4, GFR 15-29 | 02/11/2019 | | | | ml/min (HCC) | | | | | Essential | | | | | hypertension, benign | | | | | Persistent | | | | | proteinuria | | | | | Hematuria, | | | | | microscopic | | + +--------+ + + as of this encounter Visit Diagnoses + + | Diagnosis | + + | CKD (chronic kidney disease) stage 4, GFR 15-29 ml/min ([facility]) - Primary | + + | Chronic kidney disease, Stage IV (severe) | + + | Essential hypertension, benign | + + | Persistent proteinuria | + + | Proteinuria | + + | Hematuria, microscopic | + + | Microscopic hematuria | + +"
--- OUTSIDE RECORDS SUMMARY | ~2018-05-03 | XMS | Encounter Summary ---
Demographics + + + | Address | [address] | | | [place] [address] | + + + | Home Phone | | + + + | Preferred Language | Unknown | + + + | Marital Status | | + + + | Scientology Affiliation | Unknown | + + + | Race | Unknown | + + + | Ethnic Group | Unknown | + + + Author + + + | Author | [facility] | + + + | Organization | [facility] | + + + | Address | Unknown | + + + | Phone | Unavailable | + + + Support + + + + + | Name | Relationship | Address | Phone | + + + + + | Harsh Ruiz | ECON | [address] | | | | | [place] | | | | | [address] | | + + + + + Care Team Providers + +------+ + | Care School Social Worker Name | Role | Phone | + [...] | | | | | [place] [address] | | | | | | [phone] | | | +--------+ + + + [...] [place] | | | | | | [address] | | | | | | | | +--------+---------+ + + + as of this encounter Visit Diagnoses Not on filein this encounter"
--- OUTSIDE RECORDS SUMMARY | ~2018-05-03 | XMS | Encounter Summary ---
Demographics + + + | Address | [address] | | | [place] [address] | + + + | Home Phone | | + + + | Preferred Language | Unknown | + + + | Marital Status | | + + + | Faith Affiliation | Unknown | + + + | Race | Unknown | + + + | Ethnic Group | Unknown | + + + Author + + + | Author | [facility] | + + + | Organization | [facility] | + + + | Address | Unknown | + + + | Phone | Unavailable | + + + Support + + + + + | Name | Relationship | Address | Phone | + + + + + | Harsh Ruiz | ECON | [address] | | | | | [place] | | | | | [address] | | + + + + + Care Team Providers + +------+ + | Care Boat And Plant Utility Supervisor Name | Role | Phone | + [...] | | | | | [place] [address] | | | | | | [phone] | | | +--------+ + + + [...] | | | | | | [address] [place] | | | | | | [address] | | | | | | | [...] stage 4, GFR 15-29 ml/min ([facility]) - Primary | + + | Chronic kidney disease, Stage IV (severe) | + + | Essential hypertension, benign | + + | Persistent proteinuria | + + | Proteinuria | + + | Hematuria, microscopic | + + | Microscopic hematuria | + +"
--- OUTSIDE RECORDS SUMMARY | ~2018-05-03 | XMS | Encounter Summary ---
Demographics + + + | Address | [address] | | | [place] [address] | + + + | Home Phone | | + + + | Preferred Language | Unknown | + + + | Marital Status | | + + + | Pentecostal Affiliation | Unknown | + + + | Race | Unknown | + + + | Ethnic Group | Unknown | + + + Author + + + | Author | [facility] | + + + | Organization | [facility] | + + + | Address | Unknown | + + + | Phone | Unavailable | + + + Support + + + + + | Name | Relationship | Address | Phone | + + + + + | Harsh Ruiz | ECON | [address] | | | | | [place] | | | | | [address] | | + + + + + Care Team Providers + +------+ + | Care Roof Truss Builder Name | Role | Phone | + [...] | | [address] | [address] [place], [place] | (Primary Dx); CKD | | | | [place] [address] | [address] | (chronic kidney | | | | [phone] | | disease) stage 4, | | [...] uric acid, intact PTH, rU/A, Urine total szzgwwe-kf-wocyucbmdg r atio done before she comes back [...] She'd visited with the Urology team in [place] & was advised a bladder suspension surgery. [...] 100 mg by mouth daily. ergocalciferol (DRISDOL) 51562 UNITS capsule Take 1 capsule by mouth [...] LABIRON 48.5 12/17/2017 LABPROT 1,431.5 (A) 10/30/2017 [id number] 07/05/2017 OLD LABORATORY DATA: Laboratory tests [...] chart her blood pressure in the appropriate [facility] er at home. She is to call [...] uric acid, intact PTH, rU/A, Urine total qohhqbi-gz-hjlzhahdpi r atio done before she comes back [...] | | | | | | [address] [place], [place] | | | | | | [address] | | | | | | | [...]
--- OUTSIDE RECORDS SUMMARY | ~2018-05-03 | XMS | Clinical Summary ---
Demographics + + + | Address | [address] | | | [place] [address] | + + + | Home Phone | | + + + | Preferred Language | Unknown | + + + | Marital Status | | + + + | Yazdanism Affiliation | Unknown | + + + | Race | Unknown | + + + | Ethnic Group | Unknown | + + + Author + + + | Author | [facility] | + + + | Organization | [facility] | + + + | Address | Unknown | + + + | Phone | Unavailable | + + + Support + + + + + | Name | Relationship | Address | Phone | + + + + + | Harsh Kimball | ECON | [address] | | | | | [place] | | | | | [address] | | + + + + + Care Team Providers + +------+ + | Care Sample Card Maker Name | Role | Phone | + +------+ + | Shayan Torres | PP | | + +------+ + [...] 06/0 | | Activ | | (DRISDOL) 12617 | mouth 3 (three) | capsule | [...] GFR 15-29 ml/min ([facility]) | 11/14/2010 | + + + | [...] | | | | | | ml/min ([facility]); | | | | | [...] | | | | | | [address] [place] | | | | | | [address] | | | | | | | [...] +------+-------+ + | [employer] | PREMER | [id number] | | | [address] [address] | | | A BLUE | | | | [place], [place] | | | [place] | | | | [address] | | | FED | | | [...] | Self | [birth year] | Home: | [address] [place] [address] | | | al/Fam | | 1946 | [phone] | [place] | | | [place] | | | [phone] | [address] | + +--------+ +--------+ + +
--- OUTSIDE RECORDS SUMMARY | ~2018-05-03 | XMS | Encounter Summary ---
Demographics + + + | Address | [address] | | | [place] [address] | + + + | Home Phone | | + + + | Preferred Language | Unknown | + + + | Marital Status | | + + + | Yazidism Affiliation | Unknown | + + + | Race | Unknown | + + + | Ethnic Group | Unknown | + + + Author + + + | Author | [facility] [employer] | + + + | Organization | [facility] [employer] | + + + | Address | Unknown | + + + | Phone | Unavailable | + + + Support + + + + + | Name | Relationship | Address | Phone | + + + + + | Harsh Ruiz | ECON | [address] | | | | | [place] | | | | | [address] | | + + + + + Care Team Providers + +------+ + | Care Branch Account Manager Name | Role | Phone | + [...] Hyperuricemia; | | | | [place], [place] [address] | | Hematuria, | | | | [phone] | | microscopic; | | | | [...] | | | | | | ml/min ([facility]); | | | | | | Nephrolithiasis [...] | | | | | | [address] | | | | | | [address] | | | | | | | [...] | | | | | | ml/min ([facility]) | | | | | | Nephrolithiasis [...] | | | | | | ml/min ([facility]) | | | | | | Nephrolithiasis [...] | + + + + + | [facility] | [address] | [place] [address] | [phone] | | LABORATORY | Blvd. | | [...] + + + | [facility] | [address] | [place] [address] | [phone] | | LABORATORY | Blvd. | | [...] + + + | [facility] | [address] | [place] [address] | [phone] | | LABORATORY | Blvd. | | [...] + + + | [facility] | [address] | [place] [address] | [phone] | | LABORATORY | Blvd. | | [...] + + + | [facility] | [address] | [place] [address] | [phone] | | LABORATORY | Blvd. | | [...] + + + | [facility] | [address] | [place] [address] | [phone] | | LABORATORY | Blvd. | | [...] stage 4, GFR 15-29 ml/min ([facility]) | + + | Chronic kidney disease, Stage IV (severe) | + + | Nephrolithiasis | + + | Calculus of kidney | + +"
--- OUTSIDE RECORDS SUMMARY | ~2018-05-03 | XMS | Clinical Summary ---
Demographics + + + | Address | [address] | | | [place] [address] | + + + | Home Phone | | + + + | Preferred Language | Unknown | + + + | Marital Status | | + + + | Taoist Affiliation | Unknown | + + + [...] Team Providers + +------+ + | Care Business Development Officer Name | Role | Phone | + +------+ + | Myah Anguiano | PP | Unavailable | + +------+ + Source Comments [facility] is fully live on both [facility] and [facility] Allergies + + + + + [...] | PPO | [phone] | [address] [address] [place] | | | CROSS | | | [address] | [place] [address] | | | FEDERA | | | [...] | Self | [birth year] | Home: | [address] [place] [address] ST | | | al/Fam | | 1946 | [phone] | [place] [address] | | | [place] | | | [phone] | | + +--------+ +--------+ + +
--- OUTSIDE RECORDS SUMMARY | ~2018-05-03 | XMS | Clinical Summary ---
Demographics + + + | Address | [address] | | | [place] [address] | + + + | Home Phone | | + + + | Preferred Language | Unknown | + + + | Marital Status | | + + + | Mandaen Affiliation | Unknown | + + + | Race | Unknown | + + + | Ethnic Group | Unknown | + + + Author + + + | Author | [facility] | | | and [place] | + + + | Organization | [facility] | | | [...] [place] | | | | | [address] | | + + + + + | Harsh Kimball | ECON | [address] | | | | | [place], [place] | | | | | [address] | | + + + + + Care Team Providers + +------+ + | Care Boatswain Mate Name | Role | Phone | + [...] +-------+--------+ +------+-------+---------+ | BCBS | BCBS | [id number] | PPO | | | | | [...] | Self | [birth year] | Home: | [address] [place] [address] ST | | | al/Fam | | 1946 | [phone] | [place] | | | [place]gio | | | [phone] | [address] | + +--------+ +--------+ + +
--- OUTSIDE RECORDS SUMMARY | ~2018-05-03 | XMS | Encounter Summary ---
Demographics + + + | Address | [address] | | | [place] [address] | + + + | Home Phone | | + + + | Preferred Language | Unknown | + + + | Marital Status | | + + + | Restorationist Affiliation | Unknown | + + + | Race | Unknown | + + + | Ethnic Group | Unknown | + + + Author + + + | Author | [facility] [employer] | + + + | Organization | [facility] [employer] [facility] | + + + | Address | Unknown | + + + | Phone | Unavailable | + + + Support + + + + + | Name | Relationship | Address | Phone | + + + + + | Harsh Ruiz | ECON | [address] | | | | | [place] | | | | | [address] | | + + + + + Care Team Providers + +------+ + | Care Maintenance Superintendent Name | Role | Phone | + [...] Hyperuricemia; | | | | [place], [place] [address] | | Hematuria, | | | | [phone] | | microscopic; | | | | [...] | | | | | | ml/min ([facility]); | | | | | | Nephrolithiasis [...] | | | | | | [address] [place] | | | | | | [address] | | | | | | | [...] | | | | | | ml/min ([facility]) | | | | | | Nephrolithiasis [...] | | | | | | ml/min ([facility]) | | | | | | Nephrolithiasis [...] | + + + + + | [facility] | [address] | [place] [address] | [phone] | | LABORATORY | Blvd. | | [...] + + + | [facility] | [address] | [place] [address] | [phone] | | LABORATORY | Blvd. | | [...] + + + | [facility] | [address] [facility] | [place] [address] | [phone] | | LABORATORY | Blvd. | | [...] + + + | [facility] | [address] [facility] [address] [facility] | [place] [address] | [phone] | | LABORATORY | Blvd. | | [...] + + + | [facility] | [address] [facility] [address] | [place] [address] | [phone] | | LABORATORY | Blvd. | | [...] + + + | [facility] | [address] [facility] [address] | [place] [address] | [phone] | | LABORATORY | Blvd. | | [...] disease) stage 4, GFR 15-29 ml/min ([facility]) | + + | Chronic kidney disease, Stage IV (severe) | + + | Nephrolithiasis | + + | Calculus of kidney | + +"
--- OUTSIDE RECORDS SUMMARY | ~2018-05-03 | XMS | Encounter Summary ---
Demographics + + + | Address | [address] | | | [place] [address] | + + + | Home Phone | | + + + | Preferred Language | Unknown | + + + | Marital Status | | + + + | Shinto Affiliation | Unknown | + + + | Race | Unknown | + + + | Ethnic Group | Unknown | + + + Author + + + | Author | [facility] [employer] | + + + | Organization | [facility] [employer] [facility] | + + + | Address | Unknown | + + + | Phone | Unavailable | + + + Support + + + + + | Name | Relationship | Address | Phone | + + + + + | Harsh Ruiz | ECON | [address] | | | | | [place] | | | | | [address] | | + + + + + Care Team Providers + +------+ + | Care Sales Technician Name | Role | Phone | [...] | | | | | [place] [address] | | | | | | [phone] | | | +--------+ + + + [...] | | | | | | [address] [place] | | | | | | [address] | | | | | | | [...] GFR 15-29 ml/min ([facility]) - Primary | + + | Chronic kidney disease, Stage IV (severe) | + + | Essential hypertension, benign | + + | Persistent proteinuria | + + | Proteinuria | + + | Hematuria, microscopic | + + | Microscopic hematuria | + +"
--- OUTSIDE RECORDS SUMMARY | ~2018-05-03 | XMS | Encounter Summary ---
Demographics + + + | Address | [address] | | | [place] [address] | + + + | Home Phone | | + + + | Preferred Language | Unknown | + + + | Marital Status | | + + + | Hindu Affiliation | Unknown | + + + | Race | Unknown | + + + | Ethnic Group | Unknown | + + + Author + + + | Author | [facility] [employer] | + + + | Organization | [facility] [employer] | + + + | Address | Unknown | + + + | Phone | Unavailable | + + + Support + + + + + | Name | Relationship | Address | Phone | + + + + + | Harsh Ruiz | ECON | [address] | | | | | [place] | | | | | [address] | | + + + + + Care Team Providers + +------+ + | Care Arranging Funeral Director Name | Role | Phone | + [...] | | | | | [place] [address] | | | | | | [phone] | | | +--------+ + + + [...] [place] | | | | | | [address] | | | | | | | | +--------+---------+ + + + as of this encounter Visit Diagnoses Not on filein this encounter"
--- OUTSIDE RECORDS SUMMARY | ~2018-05-03 | XMS | Clinical Summary ---
Demographics + + + | Address | [address] | | | [place] [address] | + + + | Home Phone | | + + + | Preferred Language | Unknown | + + + | Marital Status | | + + + | Shinto Affiliation | Unknown | + + + | Race | Unknown | + + + | Ethnic Group | Unknown | + + + Author + + + | Author | [facility] [employer] | + + + | Organization | [facility] [employer] | + + + | Address | Unknown | + + + | Phone | Unavailable | + + + Support + + + + + | Name | Relationship | Address | Phone | + + + + + | Harsh Kimball | ECON | [address] | | | | | [place] | | | | | [address] | | + + + + + Care Team Providers + +------+ + | Care Chief Service Observer Name | Role | Phone | + [...] 06/0 | | Activ | | (DRISDOL) 02158 | mouth 3 (three) | capsule | [...] kidney disease) stage 4, GFR 15-29 ml/min ([facility]) | 11/14/2010 | + + + | [...] | | | | | | ml/min ([facility]); | | | | | | [...] | | | | | | [address] | | | | | | [address] | | | | | | | [...] +------+-------+ + | PREMERA | PREMER | [id number] | | | [address] [address] | | | A BLUE | | | | [place], [place] | | | [place]OSS | | | | [address] | | | FED | | | [...] | Self | [birth year] | Home: | [address] [place] [address] | | | al/Fam | | 1946 | [phone] | [place] | | | [place] | | | [phone] | [address] | + +--------+ +--------+ + +
--- OUTSIDE RECORDS SUMMARY | ~2018-05-03 | XMS | Encounter Summary ---
Demographics + + + | Address | [address] | | | [place] [address] | + + + | Home Phone | | + + + | Preferred Language | Unknown | + + + | Marital Status | | + + + | Catholic Affiliation | Unknown | + + + | Race | Unknown | + + + | Ethnic Group | Unknown | + + + Author + + + | Author | [facility] [employer] | + + + | Organization | [facility] [employer] [facility] | + + + | Address | Unknown | + + + | Phone | Unavailable | + + + Support + + + + + | Name | Relationship | Address | Phone | + + + + + | Harsh Ruiz | ECON | [address] | | | | | [place] | | | | | [address] | | + + + + + Care Team Providers + +------+ + | Care Blue Crabber Name | Role | Phone | + [...] Hyperuricemia; | | | | [place], [place] [address] | | Hematuria, | | | | [phone] | | microscopic; | | | | [...] | | | | | | ml/min ([facility]); | | | | | | [...] | | | | | | [address] [place] | | | | | | [address] | | | | | | | [...] | | | | | | ml/min ([facility]) | | | | | | [...] | | | | | | ml/min ([facility]) | | | | | | [...] | + + + + + | [facility] | [address] | [place] [address] | [phone] | | LABORATORY | Blvd. | | [...] + + + | [facility] | [address] | [place] [address] | [phone] | | LABORATORY | Blvd. | | [...] + + + | [facility] | [address] | [place] [address] | [phone] | | LABORATORY | Blvd. | | [...] + + + | [facility] | [address] | [place] [address] | [phone] | | LABORATORY | Blvd. | | [...] + + + | [facility] | [address] | [place] [address] | [phone] | | LABORATORY | Blvd. | | [...] + + + | [facility] | [address] | [place] [address] | [phone] | | LABORATORY | Blvd. | | [...] disease) stage 4, GFR 15-29 ml/min ([facility]) | + + | Chronic kidney disease, Stage IV (severe) | + + | Nephrolithiasis | + + | Calculus of kidney | + +"
--- OUTSIDE RECORDS SUMMARY | ~2018-05-03 | XMS | Clinical Summary ---
Demographics + + + | Address | [address] | | | [place] [address] | + + + | Home Phone | | + + + | Preferred Language | Unknown | + + + | Marital Status | | + + + | Sabianism Affiliation | Unknown | + + + | Race | Unknown | + + + | Ethnic Group | Unknown | + + + Author + + + | Author | [facility] | | | and [place] | + + + | Organization | [facility] | | | and [...] [place] | | | | | [address] | | + + + + + | Harsh Kimball | ECON | [address] | | | | | [place], [place] | | | | | [address] | | + + + + + Care Team Providers + +------+ + | Care Painter Helper Name | Role | Phone | [...] +-------+--------+ +------+-------+---------+ | BCBS | BCBS | [id number] | PPO | | | | | [...] | Self | [birth year] | Home: | [address] [place] [address] ST | | | al/Fam | | 1946 | [phone] | [place] | | | [place] | | | [phone] | [address] | + +--------+ +--------+ + +
--- OUTSIDE RECORDS SUMMARY | ~2018-05-03 | XMS | Encounter Summary ---
Demographics + + + | Address | [address] | | | [place] [address] | + + + | Home Phone | | + + + | Preferred Language | Unknown | + + + | Marital Status | | + + + | Yazidism Affiliation | Unknown | + + + | Race | Unknown | + + + | Ethnic Group | Unknown | + + + Author + + + | Author | [facility] [employer] | + + + | Organization | [facility] [employer] | + + + | Address | Unknown | + + + | Phone | Unavailable | + + + Support + + + + + | Name | Relationship | Address | Phone | + + + + + | Harsh Ruiz | ECON | [address] | | | | | [place] | | | | | [address] | | + + + + + Care Team Providers + +------+ + | Care Quality Control Inspector Heading Name | Role | Phone | + [...] | | | | | [place] [address] | | | | | | [phone] | | | +--------+ + + + [...] [place] | | | | | | [address] | | | | | | | | +--------+---------+ + + + as of this encounter Visit Diagnoses Not on filein this encounter"
--- OUTSIDE RECORDS SUMMARY | ~2018-05-03 | XMS | Encounter Summary ---
Demographics + + + | Address | [address] | | | [place] [address] | + + + | Home Phone | | + + + | Preferred Language | Unknown | + + + | Marital Status | | + + + | Oriental Orthodox Affiliation | Unknown | + + + | Race | Unknown | + + + | Ethnic Group | Unknown | + + + Author + + + | Author | [facility] [employer] | + + + | Organization | [facility] | + + + | Address | Unknown | + + + | Phone | Unavailable | + + + Support + + + + + | Name | Relationship | Address | Phone | + + + + + | Harsh Ruiz | ECON | [address] | | | | | [place] | | | | | [address] | | + + + + + Care Team Providers + +------+ + | Care Heel Shaver Name | Role | Phone | + [...] | | | | | [place] [address] | | | | | | [phone] | | | +--------+ + + + [...] [place] | | | | | | [address] | | | | | | | | +--------+---------+ + + + as of this encounter Visit Diagnoses Not on filein this encounter"
--- OUTSIDE RECORDS SUMMARY | ~2018-05-03 | XMS | Encounter Summary ---
Demographics + + + | Address | [address] | | | [place] [address] | + + + | Home Phone | | + + + | Preferred Language | Unknown | + + + | Marital Status | | + + + | Mormon Affiliation | Unknown | + + + | Race | Unknown | + + + | Ethnic Group | Unknown | + + + Author + + + | Author | [facility] [employer] | + + + | Organization | [facility] [employer] [facility] | + + + | Address | Unknown | + + + | Phone | Unavailable | + + + Support + + + + + | Name | Relationship | Address | Phone | + + + + + | Harsh Ruiz | ECON | [address] | | | | | [place] | | | | | [address] | | + + + + + Care Team Providers + +------+ + | Care Coal Mine Inspector Name | Role | Phone | + +------+ + | Melissa hSayan DO | PCP | | + +------+ [...] | | | | | [place], [place] [address] | | | | | | [phone] | | | +--------+ + + + [...] [place] | | | | | | [address] | | | | | | | | +--------+---------+ + + + as of this encounter Visit Diagnoses Not on filein this encounter"
--- OUTSIDE RECORDS SUMMARY | ~2018-05-03 | XMS | Encounter Summary ---
Demographics + + + | Address | [address] | | | [place] [address] | + + + | Home Phone | | + + + | Preferred Language | Unknown | + + + | Marital Status | | + + + | Cheondoism Affiliation | Unknown | + + + | Race | Unknown | + + + | Ethnic Group | Unknown | + + + Author + + + | Author | [facility] [employer] | + + + | Organization | [facility] [employer] [facility] | + + + | Address | Unknown | + + + | Phone | Unavailable | + + + Support + + + + + | Name | Relationship | Address | Phone | + + + + + | Harsh Ruiz | ECON | [address] | | | | | [place] | | | | | [address] | | + + + + + Care Team Providers + +------+ + | Care Rehabilitation Specialist Name | Role | Phone | + [...] | | [address] | [address] [place], [place] | (Primary Dx); CKD | | | | [place] [address] | [address] | (chronic kidney | | | | [phone] | | disease) stage 4, | | [...] uric acid, intact PTH, rU/A, Urine total ipksafd-uf-lpupkpmtsq r atio done before she comes back [...] kidney disease) stage 4, GFR 15-29 ml/min ([facility]) Class 2 obesity due to excess [...] She'd visited with the Urology team in [place] & was advised a bladder suspension surgery. [...] 100 mg by mouth daily. ergocalciferol (DRISDOL) 34545 UNITS capsule Take 1 capsule by mouth [...] LABIRON 48.5 12/17/2017 LABPROT 1,431.5 (A) 10/30/2017 [id number] 46 07/05/2017 OLD LABORATORY DATA: Laboratory tests [...] chart her blood pressure in the appropriate [facility] er at home. She is to call [...] uric acid, intact PTH, rU/A, Urine total lsmubya-xe-nkcqrigscp r atio done before she comes back [...] | | | | | | [address] [place], [place] | | | | | | [address] | | | | | | | | +--------+---------+ + + + as of this encounter Visit Diagnoses + + | Diagnosis | + + | Essential hypertension, benign - Primary | + + | CKD (chronic kidney disease) stage 4, GFR 15-29 ml/min ([facility]) | + + | Chronic kidney disease, Stage IV (severe) | + + | Stress incontinence of urine | + + | Persistent proteinuria | + + | Proteinuria | + + | Vitamin D deficiency | + + | Unspecified vitamin D deficiency | + +
--- OUTSIDE RECORDS SUMMARY | ~2018-05-03 | XMS | Encounter Summary ---
Demographics + + + | Address | [address] | | | [place] [address] | + + + | Home Phone | | + + + | Preferred Language | Unknown | + + + | Marital Status | | + + + | Denominational Affiliation | Unknown | + + + | Race | Unknown | + + + | Ethnic Group | Unknown | + + + Author + + + | Author | [facility] [employer] | + + + | Organization | [facility] [employer] [facility] | + + + | Address | Unknown | + + + | Phone | Unavailable | + + + Support + + + + + | Name | Relationship | Address | Phone | + + + + + | Harsh Ruiz | ECON | [address] | | | | | [place] | | | | | [address] | | + + + + + Care Team Providers + +------+ + | Care Supervisor Irrigation Name | Role | Phone | + [...] | | | | | [place], [place] [address] | | | | | | [phone] | | | +--------+ + + + [...] [place] | | | | | | [address] | | | | | | | | +--------+---------+ + + + as of this encounter Visit Diagnoses Not on filein this encounter"
[~2018-05-03 09:18] MED LIST changes: +DULOXETINE HCL60 MG PO; +INDAPAMIDE1.25 MG PO; +LOSARTAN POTASS25 MG PO; +METOPROLOL SUC100 MG PO; -STOOL SOFTENER1 EAC1 PO; +STOOL SOFTENER1 EACH PO; +VITAMIN B122500 MC1 PO; +VITAMIN D35000 UNI1 PO
--- OUTSIDE RECORDS SUMMARY | 2018-05-03 09:20 | XMS ---
PreManage Notification: SUZANNE KIMBALL Security General Foundry Worker Events No recent Security Events currently on file CRITERIA MET - [facility] - 2 Visits in 30 Days CARE PROVIDERS Myah Anguiano Treatment Current Hussain IYER PHONE: Unknown Neema has no Care Guidelines for this patient. Tati VISIT COUNT ([address] [facility] TOTAL 2 NOTE: Visits indicate total known visits. ED/UCC VISIT TRACKING (12 MO.) 05/03/2018 09:18 [facility] [place] TYPE: Emergency COMPLAINT: - HALLUCINATIONS 04/17/2018 14:53 [facility] [place] TYPE: Emergency COMPLAINT: - EYE PAIN,NON INJURY DIAGNOSES: - Allergy status to other drugs, medicaments and biological substances status - Chronic kidney disease, stage 3 (moderate) - Syncope and collapse - Other telephone service representative (current) drug therapy - Dehydration - Hypothyroidism, unspecified - Personal history of nicotine dependence - Pure hypercholesterolemia, unspecified - Other disturbances of skin sensation - Hypertensive chronic kidney disease with stage 1 through stage 4 chronic kidney disease, or unspecified chronic kidney disease INPATIENT VISIT TRACKING (12 MO.) No inpatient visits to display in this time frame [email or web address]
--- NOTE | 2018-05-03 13:50 | NUR ---
PT ARRIVED TO FLOOR VIA WHEELCHAIR. SBA TO BED. PT DENIES PAIN. D5 1/2 NS INFUSING AT 125ML/HR. MEDICATIONS ADMINISTERED. ORIENTED TO ROOM. PT IS AAO X4. LUNG SOUNDS CLEAR. SKIN GROSSLY INTACT. DENIES N/T. REPORTS NAUSEA WITH ANY CONSUMPTION OF FOOD. DECREASED APPETITE. CALL LIGHT IN REACH.
[2018-05-03] MEDS ORDERED: METOPROLOL SUC200 MG PO (14:32)
[2018-05-03] MEDS ORDERED: ALLOPURINOL300 MG PO (14:33)
--- NOTE | 2018-05-03 17:32 | NUR ---
PATIENT IN BED. PATIENT TRANSFERRED TO CHAIR. ONE PERSON ASSISTING. VITAL SIGNS AND I&O DONE. WARM BLANKET PROVIDED. PATIENT'S DINNER TRAY IS ON THE TABLE. PATIENT DID NOT DRINK AND VOID DURING THIS PERIOD. RN NOTIFIED. CALL LIGHT WITHIN REACH. NO OTHER NEEDS AT THIS TIME
--- NOTE | 2018-05-03 17:34 | NUR ---
pt up to chair for dinner. reports instant vomitting and nausea while eating, encouraged to eat slow and informed pt of nausea medicaiton availible if nausea occurs.
--- NOTE | 2018-05-03 17:44 | NUR ---
UPDATED DR OF NO URINE OUTPUT. VERBAL ORDER FOR 500ML NS BOLUS TO START NOW. ORDER PLACED AND STARTED.
--- NOTE | 2018-05-03 18:19 | NUR ---
PATIENT SITTING UP IN CHAIR. PATIENT GOES TO USE THE BATHROOM. ONE PERSON ASSISTING. PATIENT BACKS TO BED. WARM BLANKET PROVIDED. I&O DONE. RN IN ROOM. CALL LIGHT WITHIN REACH. NO OTHER NEEDS AT THIS TIME
--- NOTE | 2018-05-03 18:40 | NUR ---
PT ARRIVED TO FLOOR AT 1400. HERE FOR OBS. URINE OUTPUT 300ML. 1000ML BOLUS TOTAL ADMINSTERED BETWEEN FLOOR AND ER. ELEVATED CREATININE. POOR APPETITE. NOT DRINKING WELL. SBA TO BATHROOM. UP TO CHAIR FOR MEALS. PT IS DEPRESSED WITH PREVIOUS SUICIDALITY. LIFEWAYS EVAL. NO CURRENT CONCERN FOR HARM TO SELF BUT CONT TO MONITOR.
--- NOTE | 2018-05-03 19:19 | NUR ---
PATIENT ASKS FOR HELP TO CALL HER DAUGHTER. THIS MAIL RIDER HELPS THE PATIENT DIALS HER DAUGHTER'S PHONE NUMBER. CALL LIGHT WITHIN REACH. NO OTHER NEEDS AT THIS TIME
--- NOTE | 2018-05-03 20:21 | NUR ---
PADDED PRODUCTS INSPECTOR TRIMMER ROUNDING NOTE. PT RESTING IN BED. STATES THAT SHE IS UNCOMFORTABLE IN BED. PT ASSISTED TO REPOSITION IN BED. PT STATES IMPROVEMENT, DENIES FURTHER NEEDS AT THIS TIME. CALL LIGHT IN REACH.
--- NOTE | 2018-05-03 21:30 | NUR ---
PATIENT ASSESSMENT DONE AND GIVEN TYLENOL FOR 4/10 LOWER CHRONIC BACK PAIN ALONG WITH HER OTHER EVENING MEDS.
--- NOTE | 2018-05-03 23:35 | NUR ---
PATIENT UP TO THE BATHROOM AND BACK TO BED WITH 1PSBA AND THEN BACK TO BED.
--- NOTE | 2018-05-04 01:11 | NUR ---
STAPPED IN TO CHECK ON THE PATIENT AND SHE WAS WATCHING TV AND SAID SHE WAS HAVING PROBLEMS SLEEPING. WE TALKED A BIT ABOUT HER DAUGHTER WHO HAS CP AND IS AT HOME WITHOUT HER AND SHE IS WORRIED ABOUT HER. I ASKED THE PATIENT IF SHE WAS HAVING ANY THOUGHTS OF HARMING HERSELF AND SHE ASURRURED ME SHE WAS NOT, JUST WORRIED ABOUT HER DAUGHTER. PATIENT HAS HAD HTN AND IS AWARE. RESTARTED HER B/P MEDS TONIGHT. ASKED IF THERE WA ANYTHING I COULD DO TO MAKE HER MORE COMFORTABLE AND WE DECIDE A GOOD HOT CUP UF TEA AND A WARM BLANKET MAY HELP. SO THESE WERE GIVEN TO THE PATIENT AND I ASKED HER TO PLEASE CALL IF SHE HAD ANY OTHER NEEDS AND THAT I WOULD BE BACK TO TALK TO CHECK ON HER. PATIENT THANK ME.
--- NOTE | 2018-05-04 03:00 | NUR ---
PATIENT RESTING QUIETLY SUPINE, EYES CLOSED, RESPIRATIONS REGULAR AND EVEN.
--- NOTE | 2018-05-04 06:23 | NUR ---
PATIENT SLEPT FOR AWHILE UNTIL I WOKE HER FOR AM ASSESSMENT. THE TEA DID HELP HER SLEEP. SHE IS HAVING 5/10 BACK PAIN FROM THE BED AND GOT TYLENOL WITH HER MORNING MEDS. PATIENT IS GOING TO TRY AND GET SOME MORE SLEEP BEFORE BREAKFAST.
--- NOTE | 2018-05-04 07:03 | EKG ---
[facility] [address] [place], [place] [address] Signed Sinus tachycardia Otherwise normal ECG When compared with ECG of 17-APR-2018 16:09, Vent. rate has increased BY 37 BPM Confirmed by DEIRDRE LOTT MD ([id number]) on 05/04/2018 7:03:04 AM Electronically Signed By: DEIRDRE LOTT MD 05/04/18 0703 PATIENT NAME: SUZANNE KIMBALL Electrocardiogram DATE OF : 49 PHYSICIAN: DEIRDRE LOTT MD REPORT #: [id number] REPORT IS CONFIDENTIAL AND NOT TO BE RELEASED WITHOUT AUTHORIZATION
--- NOTE | 2018-05-04 07:41 | NUR ---
REPORT RECEIVED FROM HOGSHEAD HOOPER RN. PT UP IN CHAIR. DENIES PAIN. HOT TEA PROVIDED. BREAKFAST ORDERED. CALL LIGHT IN REACH.
[2018-05-04] MEDS ORDERED: MECLIZINE HCL25 MG PO (11:10)
[2018-05-04] MEDS ORDERED: HYDROXYZINE HCL25 MG PO (11:10)
--- NOTE | 2018-05-04 11:18 | NUR ---
PT UP TO CHAIR. ON PHONE WITH . PLAN FOR WALK IN HALLS AND SHOWER.
--- NOTE | 2018-05-04 11:39 | NUR ---
MED REC COMPLETE
--- NOTE | 2018-05-04 12:05 | NUR ---
PT WITH 1 ASSIST TO SHOWER. LINENS IN BED CHANGED. NEW GOWN PROVIDED. PT REFUSING TO EAT LUNCH, CITING NAUSEA AND NO APPETITE. PT UP TO CHAIR AFTER SHOWER. PO WATER ENCOURAGED. OFFERED WALK. PT WOULD LIKE TO TRY FOR WALK LATER D/T BEING TIRED FROM SHOWER. AGREED TO TRY LATER. D5 1/2NS AT 125 INFUSING. CALL LIGHT IN REACH.
--- NOTE | 2018-05-04 13:10 | NUR ---
SBA TO BATHROOM. CALL LIGHT IN REACH.
--- NOTE | 2018-05-04 13:48 | NUR ---
PT IN BED TO REST. DAUGHTER AND AT BEDSIDE. ONLY ATE 5% OF LUNCH. 1 SMALL SOFT BM. CALL LIGHT IN REACH.
--- NOTE | 2018-05-04 15:00 | NUR ---
SBA IN CATES. PT ABLE TO WALK 3 LAPS. TOLERATED WELL. BACK TO BED.
--- NOTE | 2018-05-04 17:00 | NUR ---
PT UP TO CHAIR FOR DINNER. ATE 1%. REFUSED SUPPLIMENTS OR OTHER OPTIONS.
--- NOTE | 2018-05-04 19:22 | NUR ---
PT REPORTING 9/[address] LOTT UPDATED ON PAIN AND LOW FOOD INTAKE. TYLENOL TO BE GIVEN. NO NEW ORDERS RECEIVED.
--- NOTE | 2018-05-04 20:20 | NUR ---
VS were completed by PILLO Pierson for SIMEON Mendez.
--- NOTE | 2018-05-04 20:23 | NUR ---
patient requested assistance for dialing the phone and for a heat pack. nothing more is needed at this time.
--- NOTE | 2018-05-04 20:30 | NUR ---
PATIENT HAVING SOME 5/10 RIGHT FLANK/ABD/ AND LOW BACK PAIN. WARM BLANKETS APPLIED, WARM PACK TO RIGHT FLANK, AND A CUP OF WARM TEA GIVEN WITH EVENING MEDS, + THE 650MG OF TYLENOL.
--- NOTE | 2018-05-04 22:09 | NUR ---
PATIENT COUGHING AND LAYING ON HER RIGHT SIDE. NO NEEDS AT THIS TIME.
--- NOTE | 2018-05-05 00:15 | NUR ---
PATIENT RESTING QUIETLY ON HER RIGHT SIDE AFTER GETTING UP WITH 1PSBA TO USE THE RESTROOM.
--- NOTE | 2018-05-05 02:05 | NUR ---
PATIENT RESTING ON HER RIGHT SIDE WITH RESPIRATIONS OF 16. EYES ARE CLOSED AND RESPIRATIONS ARE EVEN. CALL LIGHT IN REACH.
--- NOTE | 2018-05-05 06:03 | NUR ---
PATIENT HAS REST MOST OF THE NIGHT EYES CLOSED AND IN NO NOTICABLE DISTRESS. WHEN SHE HAS WOKEN UP TO USE THE BATHROOM SHE HAS SEEEMED A LITTLE MORE DISORIENTED THAN LAST NIGHT. PERHAPS SHE HAS JUST BEEN SLEEPING HARDER/BETTER. PATIENT HAS HAD SOME PAIN IN HER LOWER BACK ANDD AROUND HER LAP BAND WHICH IS CHRONIC. IV'S PATENT AND FLUSHING FINE. VS NORMAL EXCEPT FOR BEING SLIGHTLY HYPERTENSIVE. PATIENT CURRENTLY RESTING EYES CLOSED RESPIRATIONS REGULAR AND EVEN AT 16. CALL LIGHT IN REACH.
--- NOTE | 2018-05-05 07:25 | NUR ---
RECIEVED BEDSIDE REPORT FROM SIMEON PEREZ. PT AWAKE IN BED. DISCUSSED PLAN OF CARE FOR THE DAY, PT AGREES TO GET UP TO CHAIR FOR BREAKFAST AND GO FOR A WALK AFTER BREAKFAST. PT REPORTS SLEEPING MUCH HARDER LAST NIGHT AND FEELS "PRETTY GOOD" THIS MORNING.
--- NOTE | 2018-05-05 09:30 | NUR ---
AWARE OF HIGH BP. DR LOTT IS WAITING FOR LAB RESULTS TO COME BACK.
[2018-05-05] MEDS ORDERED: COZAAR50 MG PO (10:00)
[2018-05-05] MEDS ORDERED: TOPROL XL100 MG PO (10:00)
[2018-05-05] MEDS ORDERED: DULOXETINE HCL30 MG PO (10:01)
--- NOTE | 2018-05-05 11:51 | NUR ---
PT READY FOR DISCHARGE. SAVANA FROM PHARMACY DISCUSSED MEDICATIONS. PT VERBALIZED UNDERSTANDING OF ALL NEW MEDICATIONS. RN DISCUSSED SAFETY AT HOME, FOLLOW UP, WHEN TO CALL FOR HELP. PT VERBALIZED SAFETY PLAN TO RN AND STATED SHE WILL NOT HURT HERSELF. IV REMOVED X2. DISCHARGE VITALS TAKEN. PT TAKEN OUT IN WHEELCHAIR.
== END 2018-05-05 11:43 | disposition home or self-care (01) ==
LOC: ED 09:18 → MS 09:19
PROVIDERS: ADMIT Internal Medicine
DX: N17.9 Acute kidney failure, unspecified (principal); E86.0 Dehydration; R45.851 Suicidal ideations; F32.9 Major depressive disorder, single episode, unspecified; I12.9 Hypertensive chronic kidney disease with stage 1 through stage 4 chronic kidney disease, or unspecified chronic kidney disease; N18.3 Chronic kidney disease, stage 3 (moderate); D63.1 Anemia in chronic kidney disease; E78.5 Hyperlipidemia, unspecified; E03.9 Hypothyroidism, unspecified; G89.29 Other chronic pain; M54.9 Dorsalgia, unspecified; E79.0 Hyperuricemia without signs of inflammatory arthritis and tophaceous disease; Z87.891 Personal history of nicotine dependence; Z88.1 Allergy status to other antibiotic agents; Z79.899 Other long term (current) drug therapy; Z23 Encounter for immunization; Z91.14 Patient's other noncompliance with medication regimen
CPT/HCPCS: 36415; 80048; 80053; 80176; 81001; 83735; 84100; 84443; 85025; 93005; 93010; 96360; 96361; 99285-25; G0008; G0378; G0480; J7030; J7040

== ENCOUNTER 2019-03-19 12:44 | Emergency (ER) | payer BC ==
[~2019-03-19] VITALS: Ht 170.2 cm; Wt 101.2 kg
[~2019-03-19 12:44] MED LIST changes: +COZAAR50 MG PO; +DULOXETINE HCL30 MG PO; +HYDROXYZINE HCL25 MG PO; +MECLIZINE HCL25 MG PO; +METOPROLOL SUC200 MG PO; +TOPROL XL100 MG PO
--- OUTSIDE RECORDS SUMMARY | 2019-03-19 12:48 | XMS ---
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 Care History Medical/Surgical 05/03/2018 [facility] - Patient is currently established with [facility]. If patient is seen in the ED during business hours. Please contact CHWs at [facility]. Care Recommendation: This patient has had 5 or more Emergency Department visits in the last 12 months.\T\nbsp; Patient requires education on the scope and purpose of the ED as an acute care provider not a Primary Care Provider and should not be utilized for chronic conditions.\T\nbsp; These are guidelines and the provider should exercise clinical judgment when providing care. E.D. VISIT COUNT (12 MO.) 2 [facility] 3 [facility] 3 [facility]. TOTAL 8 NOTE: Visits indicate total known visits. ED/UCC VISIT TRACKING (12 MO.) 03/19/2019 12:45 [facility] TYPE: Emergency COMPLAINT: - MEDICAL CLEARANCE 12/20/2018 10:32 [facility] [place] TYPE: Emergency DIAGNOSES: - BOWL IMPACTION - Constipation, unspecified 12/11/2018 13:28 [facility] TYPE: Emergency DIAGNOSES: 85006. WEAKNESS 10/30/2018 09:42 [email or web address] [place] TYPE: Emergency DIAGNOSES: - Patient's other noncompliance with medication regimen - Essential (primary) hypertension - Major depressive disorder, single episode, unspecified - Suicidal ideations - depression 10/24/2018 13:25 [facility] TYPE: Emergency DIAGNOSES: 08103. Depression; N/V; Appetite 12669. Depression; N/V; Appetite Loss 08/06/2018 12:45 [facility] TYPE: Emergency DIAGNOSES: 55714. Nausea; Abdominal Pain 35287. Epigastric pain 02100. Abnormal weight loss 71072. Acute pancreatitis without necrosis or infection, [facility] 17468. Acute kidney failure, unspecified 05/03/2018 09:18 [facility] [place] TYPE: Emergency COMPLAINT: - HALLUCINATIONS 04/17/2018 14:53 [facility] [place] TYPE: Emergency COMPLAINT: - EYE PAIN,NON INJURY DIAGNOSES: - Allergy status to oth drug/meds/biol subst status - 1 Chronic kidney disease, stage 3 (moderate) - Syncope and collapse - Other video tape transferrer (current) drug therapy - Dehydration - Hypothyroidism, unspecified - Personal history of nicotine dependence - Pure hypercholesterolemia, unspecified - Other disturbances of skin sensation - 1 Hypertensive chronic kidney disease w stg 1-4/unsp chr kdny INPATIENT VISIT TRACKING (12 MO.) 12/11/2018 18:30 [facility] [place] TYPE: Medical Surgical DIAGNOSES: 0. Essential (primary) hypertension 1. Hypertensive emergency 1. Hypertensive urgency 2. Unspecified severe protein-calorie malnutrition 3. Acute kidney failure, unspecified 4. 1 Hypertensive chronic kidney disease w stg 1-4/unsp chr kdny 5. 1 Chronic kidney disease, stage 3 (moderate) 6. Hyperlipidemia, unspecified 7. Hypomagnesemia 8. Morbid (severe) obesity due to excess calories 9. Body mass index (BMI) 28.0-28.9, adult 10. Personal history of nicotine dependence 11. Bariatric surgery status 12. Acquired absence of both cervix and uterus 13. Acquired absence of other specified parts of digestive tract 14. Weakness 15. Vascular dementia without behavioral disturbance 05/03/2018 09:19 [facility] [place] TYPE: Observation COMPLAINT: - ACUTE KIDNEY INJURY DIAGNOSES: - Allergy status to other antibiotic agents status - Dehydration - Dorsalgia, unspecified - 1 Hypertensive chronic kidney disease w stg 1-4/unsp chr kdny - Other chronic pain - Hyperlipidemia, unspecified - 1 Chronic kidney disease, stage 3 (moderate) - Acute kidney failure, unspecified - Patient's other noncompliance with medication regimen - Major depressive disorder, single episode, unspecified - Other video tape transferrer (current) drug therapy - Hyperuricemia w/o signs of inflam arthrit and tophaceous dis - Suicidal ideations - Personal history of nicotine dependence - Hypothyroidism, unspecified - Anemia in chronic kidney disease - Encounter for immunization [email or web address]
[2019-03-19] MEDS ORDERED: MESALAMINE1.2 GM PO (14:37)
[2019-03-19] MEDS ORDERED: LEVOTHYROXINE100 MCG PO (14:38)
[2019-03-19] MEDS ORDERED: CONSTULOSE10 GM/15 M PO (14:39)
[2019-03-19] MEDS ORDERED: ONDANSETRON HCL4 MG (16:06)
== END 2019-03-19 19:41 | disposition home or self-care (01) ==
LOC: ED 12:44
DX: I12.9 Hypertensive chronic kidney disease with stage 1 through stage 4 chronic kidney disease, or unspecified chronic kidney disease (principal); N18.4 Chronic kidney disease, stage 4 (severe); E05.90 Thyrotoxicosis, unspecified without thyrotoxic crisis or storm; F32.9 Major depressive disorder, single episode, unspecified; E03.9 Hypothyroidism, unspecified; Z88.8 Allergy status to other drugs, medicaments and biological substances; Z79.899 Other long term (current) drug therapy
CPT/HCPCS: 80053; 80176; 81001; 84443; 85025; 99285; G0480

== ENCOUNTER 2020-09-10 14:01 | Emergency (ER) | payer BC ==
[~2020-09-10] VITALS: Ht 170.2 cm; Wt 71.7 kg
[~2020-09-10 14:01] MED LIST changes: +CONSTULOSE10 GM/15 M PO; +MESALAMINE1.2 GM PO; +ONDANSETRON HCL4 MG
[2020-09-10] MEDS ORDERED: MIRTAZAPINE7.5 MG PO (16:29)
[2020-09-10] MEDS ORDERED: NIFEDIPINE ER30 MG PO (16:29)
[2020-09-10] MEDS ORDERED: CARVEDILOL25 MG PO (16:29)
[2020-09-10] MEDS ORDERED: OMEPRAZOLE40 MG PO (16:29)
[2020-09-10] MEDS ORDERED: ALLOPURINOL100 MG PO (16:29)
[2020-09-10] MEDS ORDERED: ATORVASTATIN CA40 MG PO (16:29)
== END 2020-09-10 22:11 | disposition home or self-care (01) ==
LOC: ED 14:01
DX: R60.0 Localized edema (principal); E78.00 Pure hypercholesterolemia, unspecified; I12.9 Hypertensive chronic kidney disease with stage 1 through stage 4 chronic kidney disease, or unspecified chronic kidney disease; N18.4 Chronic kidney disease, stage 4 (severe); E03.9 Hypothyroidism, unspecified; Z87.891 Personal history of nicotine dependence; Z79.899 Other long term (current) drug therapy
CPT/HCPCS: 73590; 80053; 85025; 85610; 85730; 93971; 99284-25

== ENCOUNTER 2020-11-06 08:38 | Emergency (ER) | payer BC ==
[~2020-11-06] VITALS: Ht 170.2 cm; Wt 71.7 kg
[~2020-11-06 08:38] MED LIST changes: +ALLOPURINOL100 MG PO; +ATORVASTATIN CA40 MG PO; +CARVEDILOL25 MG PO; +MIRTAZAPINE7.5 MG PO; +NIFEDIPINE ER30 MG PO; +OMEPRAZOLE40 MG PO
--- NOTE | 2020-11-07 00:08 | EKG ---
[facility] [address] [facility] [facility] [place] [address] Signed Normal sinus rhythm Normal ECG When compared with ECG of 03-MAY-2018 10:26, Vent. rate has decreased BY 41 BPM Confirmed by DEIRDRE LOTT MD ([id number]) on 11/07/2020 12:08:03 AM Electronically Signed By: DEIRDRE LOTT MD 11/07/20 0008 PATIENT NAME: SUZANNE KIMBALL Electrocardiogram DATE OF : 49 PHYSICIAN: DEIRDRE LOTT MD REPORT #: [id number] REPORT IS CONFIDENTIAL AND NOT TO BE RELEASED WITHOUT AUTHORIZATION
== END 2020-11-06 13:30 | disposition home or self-care (01) ==
LOC: ED 08:38
PROC: 0T2BX0Z Change Drainage Device in Bladder, External Approach (ICD-10-PCS; principal; 2020-11-06)
DX: I12.9 Hypertensive chronic kidney disease with stage 1 through stage 4 chronic kidney disease, or unspecified chronic kidney disease (principal); N18.4 Chronic kidney disease, stage 4 (severe); R53.1 Weakness; E78.00 Pure hypercholesterolemia, unspecified; E03.9 Hypothyroidism, unspecified; Z99.2 Dependence on renal dialysis; Z20.822 Contact with and (suspected) exposure to COVID-19; Z87.891 Personal history of nicotine dependence; Z79.899 Other long term (current) drug therapy
CPT/HCPCS: 51701; 71045; 80053; 81001; 82140; 83735; 84484; 85025; 93005; 93010; 99285-25; C9803; J7121; U0003

== ENCOUNTER 2021-01-31 09:20 | Emergency (ER) | payer BC ==
[~2021-01-31] VITALS: Ht 170.2 cm; Wt 71.7 kg
== END 2021-01-31 17:32 | disposition home or self-care (01) ==
LOC: ED 09:20
DX: F32.A Depression, unspecified (principal); I12.9 Hypertensive chronic kidney disease with stage 1 through stage 4 chronic kidney disease, or unspecified chronic kidney disease; N18.4 Chronic kidney disease, stage 4 (severe); E78.00 Pure hypercholesterolemia, unspecified; E03.9 Hypothyroidism, unspecified; Z87.891 Personal history of nicotine dependence; Z79.899 Other long term (current) drug therapy
CPT/HCPCS: 80048; 80500; 81001; 85025; 99285; J7040

== ENCOUNTER 2021-02-04 07:17 | Emergency (ER) | payer BC ==
[~2021-02-04] VITALS: Ht 170.2 cm; Wt 71.7 kg
--- OUTSIDE RECORDS SUMMARY | 2021-02-04 07:24 | XMS ---
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 Care History Medical/Surgical 05/03/2018 [facility] - Patient is currently established with [facility]. If patient is seen in the ED during business hours. Please contact CHWs at [facility]. Care Recommendation: This patient has had 5 [...] providing care. E.D. VISIT COUNT (12 MO.) 5 [facility] TOTAL 5 NOTE: Visits indicate total known visits. ED/UCC VISIT TRACKING (12 MO.) 02/04/2021 07:18 [facility] [place] TYPE: Emergency COMPLAINT: - NOSEBLEED 02/01/2021 11:14 [facility] [place] TYPE: Emergency COMPLAINT: - NOSE BLEEDING DIAGNOSES: - Epistaxis - Other filler leaf cutter long (current) drug therapy - Hypothyroidism, unspecified - Chronic kidney disease, stage 4 (severe) - Pure hypercholesterolemia, unspecified - Hypertensive chronic kidney disease with stage 1 through stage 4 chronic kidney disease, or unspecified chronic kidney disease - DEPRESSION, UNSPECIFIED - Personal history of nicotine dependence 01/31/2021 09:20 [facility] [place] TYPE: Emergency COMPLAINT: - ALTERED MENTAL STATUS, WEAKNESS DIAGNOSES: - DEPRESSION, UNSPECIFIED - Pure hypercholesterolemia, unspecified - Personal history of nicotine dependence - Hypothyroidism, unspecified - Chronic kidney disease, stage 4 (severe) - Headache, unspecified - Hypertensive chronic kidney disease with stage 1 through stage 4 chronic kidney disease, or unspecified chronic kidney disease - Other longterm (current) drug therapy 11/06/2020 08:39 [facility] [place] TYPE: Emergency COMPLAINT: - CONFUSION DIAGNOSES: - Disorientation, unspecified - Chronic kidney disease, stage 4 (severe) - Dependence on renal dialysis - Weakness - Hypothyroidism, unspecified - Hypertensive chronic kidney disease with stage 1 through stage 4 chronic kidney disease, or unspecified chronic kidney disease - Pure hypercholesterolemia, unspecified - Other filler leaf cutter long (current) drug therapy - Personal history of nicotine dependence 09/10/2020 14:[address] [facility] [place] TYPE: Emergency COMPLAINT: - LEG PAIN SWELLING/PAIN DIAGNOSES: - Hypothyroidism, unspecified - Hypertensive chronic kidney disease with stage 1 through stage 4 chronic kidney disease, or unspecified chronic kidney disease - Chronic kidney disease, stage 4 (severe) - Pure hypercholesterolemia, unspecified - Other filler leaf cutter long (current) drug therapy - Personal history of nicotine dependence - Localized edema INPATIENT VISIT TRACKING (12 MO.) No inpatient visits to display in this time frame [email or web address]
[2021-02-04] MEDS ORDERED: ESCITALOPRAM OXA5 MG PO (07:32)
[2021-02-04] MEDS ORDERED: ALLOPURINOL100 MG PO (07:32)
== END 2021-02-04 08:33 | disposition home or self-care (01) ==
LOC: ED 07:17
DX: R04.0 Epistaxis (principal); I12.9 Hypertensive chronic kidney disease with stage 1 through stage 4 chronic kidney disease, or unspecified chronic kidney disease; N18.4 Chronic kidney disease, stage 4 (severe); E78.00 Pure hypercholesterolemia, unspecified; E03.9 Hypothyroidism, unspecified; Z79.899 Other long term (current) drug therapy
CPT/HCPCS: 80048; 85025; 85610; 99283

== ENCOUNTER 2021-02-06 16:54 | Emergency (ER) | payer BC ==
[~2021-02-06] VITALS: Ht 170.2 cm; Wt 71.7 kg
[~2021-02-06 16:54] MED LIST changes: +ESCITALOPRAM OXA5 MG PO
--- OUTSIDE RECORDS SUMMARY | 2021-02-06 17:02 | XMS ---
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 EMurtaza VISIT COUNT (12 MO.) [address] [place] [address] TOTAL 6 NOTE: Visits indicate total known visits. ED/UCC VISIT TRACKING (12 MO.) 02/06/2021 16:54 [facility] [place] TYPE: Emergency COMPLAINT: - NOSEBLEED 02/04/2021 07:18 [facility] [place] TYPE: Emergency COMPLAINT: - NOSEBLEED 02/01/2021 11:14 [facility] [place] TYPE: Emergency COMPLAINT: - NOSE BLEEDING DIAGNOSES: - Epistaxis - Other equipment operator intermodal yard (current) drug therapy - Hypothyroidism, unspecified - [...] or unspecified chronic kidney disease - Other shelter (current) drug therapy 11/06/2020 08:39 [facility] [place] TYPE: Emergency COMPLAINT: - CONFUSION DIAGNOSES: - Disorientation, unspecified - Chronic kidney disease, stage 4 (severe) - Dependence on renal dialysis - Weakness - Hypothyroidism, unspecified - Hypertensive chronic kidney disease with stage 1 through stage 4 chronic kidney disease, or unspecified chronic kidney disease - Pure hypercholesterolemia, unspecified - Other equipment operator intermodal yard (current) drug therapy - Personal history of nicotine dependence 09/10/2020 14:[address] [facility] [place] TYPE: Emergency COMPLAINT: - LEG PAIN SWELLING/PAIN DIAGNOSES: - Hypothyroidism, unspecified - Hypertensive chronic kidney disease with stage 1 through stage 4 chronic kidney disease, or unspecified chronic kidney disease - Chronic kidney disease, stage 4 (severe) - Pure hypercholesterolemia, unspecified - Other shelter (current) drug therapy - Personal history of nicotine dependence - Localized edema INPATIENT VISIT TRACKING (12 MO.) No inpatient visits to display in this time frame [email or web address]
[2021-02-06] MEDS ORDERED: HYDROCODON-ACE1 EA10 PO (20:33)
[2021-02-06] MEDS ORDERED: AMOXICILLIN500 MG PO (20:33)
== END 2021-02-06 20:53 | disposition home or self-care (01) ==
LOC: ED 16:54
DX: R04.0 Epistaxis (principal); D64.9 Anemia, unspecified; F32.A Depression, unspecified; I12.9 Hypertensive chronic kidney disease with stage 1 through stage 4 chronic kidney disease, or unspecified chronic kidney disease; N18.4 Chronic kidney disease, stage 4 (severe); E78.00 Pure hypercholesterolemia, unspecified; E03.9 Hypothyroidism, unspecified; Z87.891 Personal history of nicotine dependence; Z79.899 Other long term (current) drug therapy
CPT/HCPCS: 30903; 80053; 85025; 99285-25

== ENCOUNTER → 2021-02-09 | Emergency (ER) | payer BC ==
[~2021-02-09] VITALS: Ht 170.2 cm; Wt 64.2 kg
[~2021-02-09] MED LIST changes: +AMOXICILLIN500 MG PO; +HYDROCODON-ACE1 EA10 PO
--- OUTSIDE RECORDS SUMMARY | 2021-02-09 11:08 | XMS ---
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 EMurtaza VISIT COUNT (12 MO.) [address] [place] [address] TOTAL 7 NOTE: Visits indicate total known visits. ED/UCC VISIT TRACKING (12 MO.) 02/09/2021 11:02 [facility] [place] TYPE: Emergency COMPLAINT: - MULTIPLE COMPLAINS 02/06/2021 16:54 [facility] [place] TYPE: Emergency COMPLAINT: - NOSEBLEED DIAGNOSES: - Epistaxis - Anemia, unspecified - DEPRESSION, UNSPECIFIED - Personal history of nicotine dependence - Other skilled nursing (current) drug therapy - Hypertensive chronic kidney disease with stage 1 through stage 4 chronic kidney disease, or unspecified chronic kidney disease - Pure hypercholesterolemia, unspecified - Chronic kidney disease, stage 4 (severe) - Hypothyroidism, unspecified 02/04/2021 07:18 [facility] [place] TYPE: Emergency COMPLAINT: - NOSEBLEED DIAGNOSES: - Pure hypercholesterolemia, unspecified - Epistaxis - Chronic kidney disease, stage 4 (severe) - Hypertensive chronic kidney disease with stage 1 through stage 4 chronic kidney disease, or unspecified chronic kidney disease - Hypothyroidism, unspecified - Other skilled nursing (current) drug therapy 02/01/2021 11:14 [facility] [place] TYPE: Emergency COMPLAINT: - NOSE BLEEDING DIAGNOSES: - Epistaxis - Other skilled nursing (current) drug therapy - Hypothyroidism, unspecified - [...] or unspecified chronic kidney disease - Other skilled nursing (current) drug therapy 11/06/2020 08:39 [facility] [place] TYPE: Emergency COMPLAINT: - CONFUSION DIAGNOSES: - Disorientation, unspecified - Chronic kidney disease, stage 4 (severe) - Dependence on renal dialysis - Weakness - Hypothyroidism, unspecified - Hypertensive chronic kidney disease with stage 1 through stage 4 chronic kidney disease, or unspecified chronic kidney disease - Pure hypercholesterolemia, unspecified - Other skilled nursing (current) drug therapy - Personal history of nicotine dependence 09/10/2020 14:02 [facility] [place] TYPE: Emergency COMPLAINT: - LEG PAIN SWELLING/PAIN DIAGNOSES: - Hypothyroidism, unspecified - Hypertensive chronic kidney disease with stage 1 through stage 4 chronic kidney disease, or unspecified chronic kidney disease - Chronic kidney disease, stage 4 (severe) - Pure hypercholesterolemia, unspecified - Other skilled nursing (current) drug therapy - Personal history of nicotine dependence - Localized edema INPATIENT VISIT TRACKING (12 MO.) No inpatient visits to display in this time frame [email or web address]
--- NOTE | 2021-02-09 16:37 | EKG ---
[facility] [address] [facility] [place] [address] Signed Normal sinus rhythm Minimal voltage criteria for LVH, may be normal variant ( Hostetter product ) Borderline ECG When compared with ECG of 06-NOV-2020 09:10, T wave inversion now evident in Inferior leads Confirmed by TANVIR ALVARADO MD ([id number]) on 02/09/2021 4:37:18 PM Electronically Signed By: TANVIR ALVARADO MD 02/09/21 1637 PATIENT NAME: SUZANNE KIMBALL Electrocardiogram DATE OF : 49 PHYSICIAN: TANVIR ALVARADO MD REPORT #: [id number] REPORT IS CONFIDENTIAL AND NOT TO BE RELEASED WITHOUT AUTHORIZATION
== END ==
LOC: ED 11:01
DX: U07.1 COVID-19 (principal); D64.9 Anemia, unspecified; Z23 Encounter for immunization; I12.9 Hypertensive chronic kidney disease with stage 1 through stage 4 chronic kidney disease, or unspecified chronic kidney disease; N18.4 Chronic kidney disease, stage 4 (severe); E78.00 Pure hypercholesterolemia, unspecified; E03.9 Hypothyroidism, unspecified; Z87.891 Personal history of nicotine dependence; Z79.899 Other long term (current) drug therapy
CPT/HCPCS: 36430; 51701; 70450; 71045; 74176; 80053; 81001; 82803; 84484; 85025; 86850; 86900; 86901; 86922; 93005; 93010; 99285-25; C9803; G0480; M0243; P9016; Q0244; U0003